=== PATIENT | female | born 1940 | race Caucasian/White ===

== ENCOUNTER 2023-08-07 07:29 | Inpatient (IN) | payer MEDICARE, OTHER ==
[2023-08-07] VITALS (9 sets, daily range): BP systolic 109–149; BP diastolic 43–98
[~2023-08-07] VITALS: Ht 165.1 cm; Wt 96.1 kg
--- OUTSIDE RECORDS SUMMARY | 2023-08-07 07:31 | XMS ---
PreManage Notification: MICHELE RODRIGUEZ [employer] Worker Events No recent Security Events currently on file CRITERIA MET - [facility] - [facility] - 2 Visits in 30 Days CARE PROVIDERS Tricia Alexander Meat Slicer/Typewriter Assembly And Parts Inspector 07/10/2023-Current PHONE: [phone] -Deniz- Dentist: Drafter Castings [facility] PHONE: [phone] BERNADINE BOLAÑOS Nurse Practitioner: Family Current PHONE: [phone] MISTY TAVERA Mail Service Coordinator: Foot \T\ Ankle Surgery Current PHONE: [phone] RODRIGO ENAMORADO Internal Medicine Current PHONE: [phone] JACKSON GRANDE Nurse Practitioner: Family Current PHONE: [phone] TAMIKA RAMOS Internal Medicine Current PHONE: Unknown SHO BLEVINS Nurse Practitioner: Family Current PHONE: [phone] ANGEL PEREZ Internal Medicine Current PHONE: [phone] Casey Fuentes DO Family Medicine Current PHONE: Unknown DONAVON GAYLE Nurse Practitioner: Psychiatric/Mental Health Current PHONE: [phone] DANIEL CAAL Nurse Practitioner Will MONIQUEGH PHONE: [phone] KYREE SRIVASTAVA Family Medicine Current PHONE: [phone] KARLA CHENEY Nurse Practitioner: Family Current PHONE: Unknown [facility] Clinic/Center: [facility] Current WORKERS CLINIC \[facility] (FQ) [facility] PHONE: [phone] Mitzy has no Care Guidelines for this patient. Gold VISIT COUNT (12 MO.) 1 LÁZARO [facility] TOTAL 2 NOTE: Visits indicate total known visits. ED/UCC VISIT TRACKING (12 MO.) 08/07/2023 07:29 [place] TYPE: Emergency COMPLAINT: - CHEST PAIN 07/23/2023 18:50 [facility] [place] TYPE: Emergency DIAGNOSES: - Acute kidney failure, unspecified - Anemia, unspecified - Hyperkalemia - Unspecified fracture of shaft of right fibula, initial encounter for closed fracture - Unspecified fracture of shaft of right tibia, initial encounter for closed fracture - RIGHT LEG PAIN INPATIENT VISIT TRACKING (12 MO.) 07/24/2023 11:58 [facility] [place] TYPE: Medical Surgical COMPLAINT: - Anemia,renal failure,right tib/fib DIAGNOSES: - Anemia,renal failure,right tib/fib [email or web address]
[2023-08-07] MEDS ORDERED: SODIUM CHLORIDE 0.9% 1,000 ML IV PRN ×2 (07:45)
[2023-08-07 07:57] LABS: HEMATOCRIT 22.4 % (35.0-50.0); HEMOGLOBIN 7.2 g/dL (12.0-18.0); MCH 31.3 (27-36)
[2023-08-07] MEDS ORDERED: BUDESONIDE1 MG/2 ML INH (07:59)
[2023-08-07] MEDS ORDERED: CELECOXIB200 MG PO (07:59)
[2023-08-07 08:00] LABS: BASOPHILS 1.5 % (0-2); EOSINOPHILS 0.9 % (0-6); LYMPHOCYTES 40.5 % (24-44); MCHC 32.1 g/dl (30-36); MCV 97.6 fl (81-99); MONOCYTES 1.4 % (0-12); NEUTROPHILS 55.7 % (39-80); PLATELET COUNT 290 K/uL (140-440); RDW 18.4 (10.5-15.0)
[2023-08-07] MEDS ORDERED: PHYSICIANS1000 MCG/1 INJ (08:00)
[2023-08-07] MEDS ORDERED: GABAPENTIN100 MG PO (08:01)
[2023-08-07] MEDS ORDERED: LEVOTHYROXINE150 MCG PO (08:13)
[2023-08-07] MEDS ORDERED: HYDRALAZINE HCL25 MG PO (08:14)
[2023-08-07] MEDS ORDERED: LOSARTAN POTAS100 MG PO (08:14)
[2023-08-07] MEDS ORDERED: PANTOPRAZOLE SO40 MG PO (08:15)
[2023-08-07 08:23] LABS: ALBUMIN 2.9 g/dL (3.4-5.0); ALBUMIN/GLOBULIN RATIO 0.97 (1.1-2.4); ANION GAP 12.2 (7-21); BILIRUBIN, TOTAL 0.5 ng/dL (0.2-1.0); BUN/CREATININE RATIO 25.19 (6.0-28.6); CALCIUM 8.3 mg/dL (8.5-10.1); CREATININE, SERUM 1.31 mg/dL (0.55-1.02); POTASSIUM 4.2 mmol/L (3.5-5.1); PROTEIN, TOTAL 5.9 g/dL (6.4-8.2)
[2023-08-07] MEDS ORDERED: METOPROLOL TARTRATE 5 MG/5 ML VIAL IV ONE (10:00)
[2023-08-07] MEDS ORDERED: FUROSEMIDE 20 MG/2 ML VIAL IV ONE (11:00)
[2023-08-07] MEDS ORDERED: CEFTRIAXONE/SODIUM CHLORIDE 1 GM/100 ML PIGGYBACK IV ONE (11:00)
[2023-08-07] MEDS ORDERED: AZITHROMYCIN 250 MG TAB PO ONE (11:00)
[2023-08-07] MEDS ORDERED: ALBUTEROL/IPRATROPIUM 3 ML NEB INH ONE (11:15)
[2023-08-07 11:18] LABS: BILIRUBIN, URINE NEGATIVE (negative); BLOOD/HGB, URINE TRACE-I (Negative); KETONE, URINE NEGATIVE (Negative); LEUK ESTERASE, URINE LARGE (negative); NITRITE, URINE NEGATIVE (negative); PH, URINE 7.5 (5-7)
[2023-08-07 11:28] LABS: BACTERIA, URINE NONE SEEN /hpf (negative); CASTS, URINE NONE SEEN \\lpf; COLLECTION TYPE, URINE CLEAN CATCH; CRYSTALS, URINE NONE SEEN (0-1+); EPITHELIAL CELLS, URINE SQUAMOUS 3+ /lpf (0-1+); REFLEX CULTURE, URINE No (No)
[2023-08-07] MEDS ORDERED: ondansetron HCL 4 MG/2 ML VIAL IV PRN (12:15)
[2023-08-07] MEDS ORDERED: ACETAMINOPHEN 325 MG TAB PO PRN (12:15)
[2023-08-07] MEDS ORDERED: SOLIFENACIN SUC10 MG PO (13:03)
[2023-08-07 13:09] LABS: ABO A; ANTIBODY SCREEN POSITIVE; RH POSITIVE
[2023-08-07] MEDS ORDERED: SIMVASTATIN40 MG PO (13:32)
[2023-08-07] MEDS ORDERED: FLUTICASONE-SA1 EAC3 INH (13:32)
[2023-08-07] MEDS ORDERED: MONTELUKAST SOD10 MG PO (13:34)
[2023-08-07] MEDS ORDERED: ATENOLOL100 MG PO (13:36)
[2023-08-07] MEDS ORDERED: HYDROCHLOROTHIA50 MG PO (13:37)
--- NOTE | 2023-08-07 13:37 | NUR ---
UNABLE TO VISIT DURING SPIRITUAL CARE ROUNDS; PT RECEIVING NURSING CARE. PROVIDED CARE.
[2023-08-07] MEDS ORDERED: DILTIAZEM HCL90 MG PO (13:48)
[2023-08-07] MEDS ORDERED: ISOSORBIDE MONO30 MG PO (13:48)
[2023-08-07] MEDS ORDERED: ATORVASTATIN CA20 MG PO (13:48)
[2023-08-07] MEDS ORDERED: METOPROLOL TAR100 MG PO (13:49)
[2023-08-07] MEDS ORDERED: SENNA LAX8.6 MG PO (13:52)
[2023-08-07] MEDS ORDERED: SEROQUEL25 MG PO (13:52)
[2023-08-07] MEDS ORDERED: VENTOLIN HFA18 GM INH (13:53)
[2023-08-07] MEDS ORDERED: ACETAMINOPHEN325 M1 PO (13:53)
[2023-08-07] MEDS ORDERED: MELATONIN3 MG PO (13:54)
[2023-08-07] MEDS ORDERED: MIRALAX17 GM PO (13:55)
[2023-08-07] MEDS ORDERED: THERA-D50 MCG PO (14:00)
[2023-08-07] MEDS ORDERED: ONDANSETRON HCL4 MG PO (14:02)
[2023-08-07] MEDS ORDERED: VITAMIN B COMP0.4 MG PO (14:02)
[2023-08-07] MEDS ORDERED: BISACODYL10 MG PR (14:03)
--- NOTE | 2023-08-07 14:04 | NUR ---
medications reconciled using [facility] M[facility]
--- NOTE | 2023-08-07 14:07 | NUR ---
UNABLE TO VISIT DURING SPIRITUAL CARE ROUNDS. PT RECEIVING NURSING CARE. PROVIDED PRAYER.
--- NOTE | 2023-08-07 14:12 | NUR ---
LET DR. ONEAL KNOW THAT PATIENT HAS A RARE BLOOD ANTIGEN AND IS HAVING FURTHER LABS TO CONFIRM, THAT THERE WILL BE A DELAY IN BLOOD TRANSFUSION DUE TO SPECIAL ORDER OF BLOOD. ALSO, THAT PATIENT DID NOT HAVE METOPROLOL OR SALINE BOLUS IN ER. PATIENT HAS WOUND CONSULT.
[2023-08-07] MEDS ORDERED: METOPROLOL TARTRATE 5 MG/5 ML VIAL IV PRN (14:30)
--- NOTE | 2023-08-07 14:43 | NUR ---
PT BROUGHT TO [facility] ALERT AND COOPERATIVE. STAFF ASSIST TO TRANSFER TO BED. PICTURES TAKEN DURING SKIN ASSESSMENT BARRIER CREAM APPLIED WOUND CONSULT ORDERED. PT ORIENTED TO ROOM AND BED CONTROLS H20 AND SOUP PROVIDED PER REQUEST. TACHYCARDIA REPORTED TO DR VIOLET CHING ORDERED. ECHO-CARDIO GRAM BEING DONE AT THIS TIME
--- NOTE | 2023-08-07 15:40 | NUR ---
O/T IN TO WORK WITH PT. PT C/O 22/01 RLE PAIN TYLENOL PROVIDED. ASKED PT WHAT SHE NORMALLY TAKES FOR PAIN SHE STATES TYLENOL. RESTING IN BED NOW BOOTIES IN PLACE WELL PURWIK
--- NOTE | 2023-08-07 16:29 | NUR ---
DR LAZO NOTIFIED OF INCREASED LACTIC ACID. STATES HE WILL BE HERE SHORTLY
--- NOTE | 2023-08-07 17:39 | NUR ---
PT SITTING UP IN BED VISITING WITH GUESTS, DENIES NEEDS.
--- NOTE | 2023-08-07 18:41 | NUR ---
DR LAZO IN TO ASSESS PT
[2023-08-07] MEDS ORDERED: VANCOMYCIN PER PHARMACY PROTOCOL IV SCH (19:30)
[2023-08-07 19:42] LABS: BASOPHILS 0.4 % (0-2); EOSINOPHILS 1.2 % (0-6); HEMATOCRIT 20.7 % (35.0-50.0); HEMOGLOBIN 6.9 g/dL (12.0-18.0); MCHC 33.3 g/dl (30-36); MONOCYTES 1.7 % (0-12); NEUTROPHILS 63.7 % (39-80); PLATELET COUNT 280 K/uL (140-440); RBC 2.15 M/ul (4.3-5.7); RDW 18.2 (10.5-15.0)
[2023-08-07] MEDS ORDERED: VANCOMYCIN HCL 2,250 MG in SODIUM CHLORIDE 0.9% 500 ML IV ONE (20:00)
--- NOTE | 2023-08-07 20:03 | NUR ---
REPORT RECEIVED FROM DAY SHIFT RN. PT LYING IN BED ALERT AND ORIENTED. ASSISTED TO REPOSITION IN BED. TELE IN PLACE. HR SUSTAINED 130'S. AWARE. ORDERS RECEIVED FOR HOME MEDS. MEDS ADMINISTERED PER EMAR. PT DENIES SOB. REPORTS RLE PAIN. RLE ELEVATED ON PILLOW. HEEL PROTECTORS IN PLACE. NO FURTHER NEEDS. CALL LIGHT IN REACH.
--- NOTE | 2023-08-07 20:23 | NUR ---
ORDERS RECEIVED TO TX PT TO CCU. PT ON PHONE WITH DAUGHTER WHO IS AWARE OF TX. PT TRANSFERRED TO CCU ROOM 129 PER MD ORDER. BEDSIDE REPORTS GIVEN TO CCU RN. ALL PERSONAL BELONGINGS IN TOW.
--- NOTE | 2023-08-07 20:27 | NUR ---
PATIENT ARRIVED TRANSFER FROM MED/SURG FOR CLOSER MONITORING. REPORT FROM HEATHER RN AND MARK RN AT BEDSIDE. PATIENT ALERT AND ORIENTED. REPORTS BLE ALWAYS TENDER AND ACHE.
[2023-08-07] MEDS ORDERED: CEFEPIME HCL 1 GM VIAL ONE (20:48)
[2023-08-07] MEDS ORDERED: VANCOMYCIN HCL 1,000 MG/20 ML VIAL ONE (20:50)
[2023-08-07] MEDS ORDERED: METOPROLOL TARTRATE 100 MG TAB PO SCH (21:00)
[2023-08-07] MEDS ORDERED: CEFEPIME HCL/D5W 2 GM/100 ML PIGGYBACK IV SCH (21:00)
[2023-08-07] MEDS ORDERED: GABAPENTIN 100 MG CAP PO SCH (21:00)
[2023-08-07] MEDS ORDERED: dilTIAZem HCL 60 MG TAB PO SCH (21:00)
[2023-08-07] MEDS ORDERED: QUETIAPINE FUMARATE 25 MG TAB PO SCH (21:00)
[2023-08-07] MEDS ORDERED: ATORVASTATIN 20 MG TAB PO SCH (21:00)
[2023-08-07] MEDS ORDERED: CEFEPIME HCL 1 GM in DEXTROSE 5% 100 ML IV SCH (21:00)
[2023-08-07] MEDS ORDERED: PANTOPRAZOLE SODIUM 40 MG/10 ML VIAL IV SCH (21:00)
[2023-08-07] MEDS ORDERED: ALBUTEROL/IPRATROPIUM 3 ML NEB INH PRN (21:15)
--- NOTE | 2023-08-07 21:22 | NUR ---
PATIENT ADMINSITERED TYLENOL PRN FOR 4/10 PAIN AT RLE, ALSO ICE PACKS X2 PLACED LATERALLY ALONG RLE TO HELP WITH PAIN AND INFLAMMATION. ALSO UPDATED IN PATIENT SWELLING/BRUISING AT RLE POST OP, HE VISUALIZED THIS AFTER HAVING PATIENT SIGN BLOOD CONSENT FORM. EXPLAIN PLAN OF CARE GOING FORWARD IN REGARDS TRANSFUSION AND POTENTIAL REACTION/SIDE EFFECTS.
--- NOTE | 2023-08-07 21:39 | NUR ---
PATIENT NOW RESTING IN BED, EYES CLOSED ON MONITOR, V/S STABLE, RESPIRATIONS 27/MIN
--- NOTE | 2023-08-07 23:09 | EKG ---
[facility] [address] [facility] [place] [address] Signed Supraventricular tachycardia Nonspecific ST and T wave abnormality Abnormal ECG No previous ECGs available Confirmed by Siena Lazo MD () on 08/07/2023 11:09:57 PM Electronically Signed By: SIENA LAZO MD 08/07/23 2309 PATIENT NAME: MICHELE RODRIGUEZ Electrocardiogram DATE OF : 36 PHYSICIAN: SIENA LAZO MD REPORT #: [id number] REPORT IS CONFIDENTIAL AND NOT TO BE RELEASED WITHOUT AUTHORIZATION
--- NOTE | 2023-08-07 23:32 | NUR ---
PATIENT TURNED AND CLEANED AND CHANGED DEPENDS WITH URINE ON PURWICK NOT IN POSITION WELL. NEW PURWICK PLACED, CLEAN DRAW SHEET, PATIENT ABLE TO ASSIST MINIMALLY WITH BED MOBILITY. PATIENT HAS NO NEW REQUESTS. CALL LIGHT IN REACH.
[2023-08-08] VITALS (19 sets, daily range): BP systolic 107–142; BP diastolic 40–93
[2023-08-08 00:29] LABS: BASOPHILS 0.7 % (0-2); EOSINOPHILS 2.7 % (0-6); HEMOGLOBIN 6.5 g/dL (12.0-18.0); MCH 31.6 (27-36); MCHC 32.7 g/dl (30-36); MCV 96.6 fl (81-99); MONOCYTES 1.4 % (0-12); NEUTROPHILS 62.2 % (39-80); PLATELET COUNT 254 K/uL (140-440); RBC 2.07 M/ul (4.3-5.7); RDW 18.5 (10.5-15.0)
[2023-08-08] MEDS ORDERED: CYCLOBENZAPRINE HCL 10 MG TAB PO ONE (01:15)
--- NOTE | 2023-08-08 01:17 | NUR ---
TALKED TO TO REPORT PATIENT CONTINUES TO BE RESTLESS AND "JERK" AWAKE AND MOAN, POSSIBLE MUSCLE SPASMS, HE SAID OK TO TRY ONE LOW DOSE OF FLEXERILE 5MG PO. AND ORDER BIPAP/CPAP FOR R.T. TO SET UP RECORDS SHOW SHE HAS HISTORY SLEEP APNEA WITH HOME CPAP, SOMETIMES COMPLIANT.
--- NOTE | 2023-08-08 02:46 | NUR ---
PATIENT REPOSITIONED DUE TO HER REPORT OF DISCOMFORT. PATIENT NOW RESTING QUIETLY IN BED, EYES CLOSED.
--- NOTE | 2023-08-08 03:35 | NUR ---
PATIENT REPOSITIONED AND DEPENDS CHANGE OF URINE, DUE TO PURWICK NOT CATCHING ALL URINE OUT, PATIENT ADMINISTERED TYLENOL FOR PAIN 09/17 AT RLE
[2023-08-08] MEDS ORDERED: CEFEPIME HCL 1 GM VIAL ONE ×2 (05:04→05:14)
[2023-08-08 05:37] LABS: BASOPHILS 0.7 % (0-2); EOSINOPHILS 3.5 % (0-6); HEMOGLOBIN 6.7 g/dL (12.0-18.0); LYMPHOCYTES 32.4 % (24-44); MCHC 33.3 g/dl (30-36); MCV 96.1 fl (81-99); NEUTROPHILS 62.4 % (39-80); PLATELET COUNT 258 K/uL (140-440); RBC 2.08 M/ul (4.3-5.7); RDW 18.5 (10.5-15.0)
[2023-08-08 05:59] LABS: ALBUMIN 2.5 g/dL (3.4-5.0); ALBUMIN/GLOBULIN RATIO 0.81 (1.1-2.4); BILIRUBIN, TOTAL 0.4 ng/dL (0.2-1.0); BUN/CREATININE RATIO 18.23 (6.0-28.6); CALCIUM 7.7 mg/dL (8.5-10.1); CREATININE, SERUM 1.81 mg/dL (0.55-1.02); MAGNESIUM 1.3 mg/dL (1.8-2.4); PHOSPHORUS, INORGANIC 5.1 mg/dL (2.5-4.9); PROTEIN, TOTAL 5.6 g/dL (6.4-8.2); TSH, 3RD GENERATION 1.812 uIU/mL (0.358-3.740)
[2023-08-08] MEDS ORDERED: MAGNESIUM SULFATE 4 GM/100 ML BAG IV ONE (06:30)
[2023-08-08] MEDS ORDERED: LEVOTHYROXINE SODIUM 150 MCG TAB PO SCH ×2 (07:00→09:00)
--- NOTE | 2023-08-08 08:16 | NUR ---
IN PATIENT'S ROOM FOR AM ASSESSMENT AND VITALS. PT AWAKENS EASILY AND STATES SHE SLEPT WELL, AND FINALLY WAS ABLE TO RELAX. PT WAS GIVEN PRN FLEXARIL AND STATES SHE FEELS THIS HELPED HER PAIN. CURRENT PAIN IS 6/10 IN RIGHT LEG. PT IS ABLE TO MOVE TOES, LIFT LEFT LEG UP OFF THE BED AND GROSS MOVEMENT OF RIGHT LEG, MOSTLY DUE TO WEAKNESS IT SEEMS. PT REPORTS SHE HASN'T BEEN OUT OF BED IN A LONG TIME, BUT DID SIT AT THE EDGE OF THE BED YESTERDAY. NOTED ON TRAFFIC CONTROL SUPERVISOR THAT HR ELEVATED UP TO THE 120s, SINUS. PT ON 2 L OF OXYGEN AND SP02 IS 99-100%. OXYGEN TAKEN OFF AT THIS TIME AND WILL CONTINUE TO WATCH SP02 LEVEL. PT RECEIVING 4 GM IV MAG AT THIS TIME, WELL IV CEFEPIME. PT ABLE TO HELP ROLL SELF TO HER SIDE IN BED, AND BACKSIDE ASSESSED. PUREWICK IN PLACE AND WORKING WELL. PLAN OF CARE DISCUSSED WITH PATIENT. CALL LIGHT WITHIN REACH. WILL CONTINUE TO MONITOR.
--- NOTE | 2023-08-08 09:04 | NUR ---
DR. LAZO IN TO SEE PATIENT. PATIENT HAS REMAINED OFF OXYGEN SINCE AROUND 0815. HR REMAINS ELEVATED, CURRENTLY 110s, SINUS. PT ABLE TO EAT ALL OF HER EGGS AND BISQUIT. PLAN OF CARE BEING DISCUSSED. PT WILL HAVE AN XRAY OF HER RIGHT LEG. WILL CONTINUE TO MONITOR.
--- NOTE | 2023-08-08 10:23 | NUR ---
PATIENT HAS VISITORS IN ROOM AT THIS TIME. XRAYS OF RIGHT LEG COMPLETE. HR BETTER CONTROLLED NOW, CURRENTLY 80s. SP02 IS 95% ON ROOM AIR.
[2023-08-08] MEDS ORDERED: PHARMACY RENAL DOSE ADJUSTMENT 1 DOSE MISC PO SCH (12:00)
--- NOTE | 2023-08-08 14:53 | NUR ---
PHYS THERAPY IN TO SEE PATIENT AND WORKING WITH PATIENT TO GET TO SIDE OF BED. PT HESITANT TO WORK WITH PHYS THERAPY BUT WAS WILLING TO AFTER SOME DISCUSSION. WHILE SITTING ON EDGE OF BED, PT DID USE INCENTIVE SPIROMETER AND WAS ABLE TO GET IT UP TO 750 ML. PT BACK TO RESTING AT THIS TIME.
[2023-08-08] MEDS ORDERED: VANCOMYCIN HCL 750 MG in DEXTROSE 5% 250 ML IV SCH (16:00)
[2023-08-08 16:15] LABS: BASOPHILS 0.8 % (0-2); EOSINOPHILS 3.9 % (0-6); HEMATOCRIT 22.1 % (35.0-50.0); HEMOGLOBIN 7.1 g/dL (12.0-18.0); MCH 31.5 (27-36); MCHC 32.4 g/dl (30-36); MCV 97.1 fl (81-99); MONOCYTES 1.2 % (0-12); NEUTROPHILS 58.1 % (39-80); PLATELET COUNT 291 K/uL (140-440); RBC 2.27 M/ul (4.3-5.7); RDW 18.2 (10.5-15.0)
[2023-08-08 16:21] LABS: ANION GAP 14.3 (7-21); BUN/CREATININE RATIO 20.1 (6.0-28.6); CALCIUM 8.3 mg/dL (8.5-10.1); CREATININE, SERUM 1.94 mg/dL (0.55-1.02); POTASSIUM 4.3 mmol/L (3.5-5.1)
[2023-08-08] MEDS ORDERED: LACTATED RINGER'S 1,000 ML IV SCH (18:00)
--- NOTE | 2023-08-08 20:04 | NUR ---
PATIENT ALERT AND ORIENTED, REPORTS PAIN IS TOLERABLE AT THIS TIME. REPORTS NO NEEDS AT THIS TIME, SHE SPOKE ABOUT HER DOG AND SHOWED THIS RN PICTURED FROM HER PHONE. SHE SAID SHE HAS TO GET BETTER TO GO HOME TO HER DOG AND CAT.
[2023-08-08] MEDS ORDERED: CEFEPIME HCL/D5W 2 GM/100 ML PIGGYBACK IV SCH (21:00)
[2023-08-08] MEDS ORDERED: CYCLOBENZAPRINE HCL 10 MG TAB PO SCH (21:00)
[2023-08-08] MEDS ORDERED: VANCOMYCIN HCL/D5W 1 GM/270 ML PIGGYBACK KIT IV SCH (21:00)
--- NOTE | 2023-08-08 21:12 | NUR ---
HS ASSESSMENT COMPLETE, NO NEW CONCERNS, HS MEDICATIONS ADMINISTERED WITH TYLENOL PRN FOR PAIN 06/17, SHE REPORTS IT IS JUST STARTING TO HURT IN REFERENCE TO RLE, SHE IS PLEASANT AND ORIENTED. KIM Hyde HAS PLACED BIPAP ON PATIENT, SHE IS TOLERATING WELL OF NOW.
[2023-08-08 22:52] LABS: BASOPHILS 0.5 % (0-2); EOSINOPHILS 4.3 % (0-6); HEMATOCRIT 19.2 % (35.0-50.0); HEMOGLOBIN 6.4 g/dL (12.0-18.0); LYMPHOCYTES 37.6 % (24-44); MCH 31.9 (27-36); MCHC 33.2 g/dl (30-36); MCV 96.3 fl (81-99); MONOCYTES 1.3 % (0-12); NEUTROPHILS 56.3 % (39-80); PLATELET COUNT 265 K/uL (140-440); RBC 1.99 M/ul (4.3-5.7); RDW 18.8 (10.5-15.0)
[2023-08-08 23:07] LABS: ANION GAP 11.7 (7-21); BUN/CREATININE RATIO 20.44 (6.0-28.6); CREATININE, SERUM 1.81 mg/dL (0.55-1.02); POTASSIUM 3.7 mmol/L (3.5-5.1)
--- NOTE | 2023-08-08 23:53 | NUR ---
BLOOD UPDATE, THIS RN CALLED LAB TO ASK WHEN UNIT ORDERED OUT OF HOUSE WOULD ARRIVE. LAB SAID IT HAS ARRIVED, IT WILL REQUIRE DR. HO AN EMERGENCY RELEASE. CALLED TO UPDATE ALSO, HE SAID HE WILL EVALUATE HER LABS IN AM. NO NEW ORDERS AT THIS TIME
[2023-08-09] VITALS (15 sets, daily range): BP systolic 102–148; BP diastolic 36–107
--- NOTE | 2023-08-09 00:36 | NUR ---
PATIENT ALERT TO STAFF AT BEDSIDE, PATIENT CHECKED TO ENSURE DEPENDS DRY AND REPOSITIONED PATIENT, PLACEING PILLOW UNDER RIGHT KNEE PER PATIENT REQUEST. PATIENT REPORTS SHE IS COMFORTABLE AT THIS TIME.
--- NOTE | 2023-08-09 05:25 | NUR ---
PATIENT RESTING IN BED, EYES CLOSED AWAKES FOR INTERACTION THEN BACK TO SLEEP, NO REPORTS OF PAIN OR NAUSEA, AM ASSESSMENT COMPLETE, AM LABS DRAWN BY LAB STAFF.
--- NOTE | 2023-08-09 05:35 | NUR ---
BLADDER SCANNED PATIENT AT THIS TIME DUE TO ONLY HAVING 225ML URINE OUT OVER SHIFT, SCANNED FOR 355ML.
[2023-08-09 05:54] LABS: ALBUMIN 2.5 g/dL (3.4-5.0); ALBUMIN/GLOBULIN RATIO 0.81 (1.1-2.4); ANION GAP 15.8 (7-21); BILIRUBIN, TOTAL 0.3 ng/dL (0.2-1.0); BUN/CREATININE RATIO 20.21 (6.0-28.6); CALCIUM 8.1 mg/dL (8.5-10.1); CREATININE, SERUM 1.88 mg/dL (0.55-1.02); MAGNESIUM 2.2 mg/dL (1.8-2.4); POTASSIUM 3.8 mmol/L (3.5-5.1); PROTEIN, TOTAL 5.6 g/dL (6.4-8.2)
[2023-08-09 06:05] LABS: BASOPHILS 0.6 % (0-2); EOSINOPHILS 4.7 % (0-6); HEMATOCRIT 20.5 % (35.0-50.0); HEMOGLOBIN 6.7 g/dL (12.0-18.0); LYMPHOCYTES 42.4 % (24-44); MCH 31.4 (27-36); MCHC 32.5 g/dl (30-36); MCV 96.7 fl (81-99); MONOCYTES 1.3 % (0-12); PLATELET COUNT 269 K/uL (140-440); RBC 2.12 M/ul (4.3-5.7); RDW 18.8 (10.5-15.0)
--- NOTE | 2023-08-09 07:04 | NUR ---
NOTIFIED OF PATIENT LOW URINE OUT OVER COIL WINDER REPAIR, BLADDER SCANNED FOR 355ML AT 0530. NO NEW ORDERS AT THIS TIME.
[2023-08-09 07:36] LABS: IS CROSSMATCH INCOMPATIBLE
--- NOTE | 2023-08-09 07:36 | NUR ---
REPORT FROM YENNY DUNNE.
--- NOTE | 2023-08-09 08:45 | NUR ---
MORNING ASSESSMENT COMPLETE. UPPER LEFT LOBE OF LUNG IS CLEAR WITH FINE CRACKLES, LEFT LOWER LOBE IS DIM. RIGHT LUNG WITH CRACKLES THROUGHOUT. PATIENT SITTING UP IN BED TO EAT BREAKFAST, DID HAVE EPISODE OF COUGHING, ASPIRATED A SMALL AMOUNT OF ORANGE JUICE, COUGHED, FELT BETTER AND RESUMED EATING BREAKFAST. PATIENT DENIES PAIN OR NAUSEA.
--- NOTE | 2023-08-09 08:56 | NUR ---
PT REPOS TO RIGHT SIDE. PILLOW ON LEFT SIDE. BRIEF CHANGE AND MARTIN CHANGED. LINENS REPOS. PT BRUCE CARE COMPLETE. BED BATH AND SHAMPOO CAP COMPLETE. WARM BLANKETS AND WATER PROVIDED. NO NEEDS CALL LIGHT WITHIN REACH
--- NOTE | 2023-08-09 09:11 | NUR ---
PATIENT GIVEN MORNING ORAL MEDS, IV PROTONIX. PT AND OT IN TO WORK WITH PATIENT.
--- NOTE | 2023-08-09 09:15 | NUR ---
IN TO SPEAK WITH PATIENT. PATIENT HAS RECENTLY BEEN RECVING REHAB AT [facility] AT [address]. PATIENT NORMALLY RESIDES IN A 1 LEVEL TRAILER IN [place]. PATIENT STATES SHE RECVS CAREGIVING HOURS THROUGH [facility] THOUGH THEY HAVE RECENTLY BEEN DECREASED. PATIENT STARTED WITH 35 HRS PER WEEK AND HAS BEEN DECREASED TO 15 HR. PATIENT HAS A ELECTRIC WC AT [facility] AND A FWW WALKER AT HOME. PATIENT DAUGHTER AND CONTACT DAVID LIVES IN [place], BUT SHE HAS A SON AND DAUGHTER WHO ALSO LIVE IN [place]. PATIENT HAS NO FINANCIAL CONCERNS AT THIS TIME. SHE IS HAPPY TO HEAR SHE WILL BE RETURNING TO [facility] AT DISCHARGE. PATIENT IS CONCERNED ABOUT THE RECENT DECREASE IN CAREGIVING HOURS. ADVISED I WILL CONTACT HER MATERIAL LOADER AT [facility] TO DISCUSS HER CURRENT SITUATION.
--- NOTE | 2023-08-09 09:30 | NUR ---
PATIENT IS FINISHED WORKING WITH PATIENT. PATIENT IS NOW REPOSITIONED TO LEFT SIDE. PATIENT WAS ABLE TO SIT ON SIDE OF BED WITH 2PA.
--- NOTE | 2023-08-09 09:38 | NUR ---
CASE MANAGEMENT (RENE) IN TO TALK WITH PATIENT.
--- NOTE | 2023-08-09 10:43 | NUR ---
URINE OUTPUT IS 400ML FOR THE MORNING [phone]. PATIENT IS SLEEPING WITH REGULAR RESPIRATIONS.
--- NOTE | 2023-08-09 11:47 | NUR ---
PT ORAL CARE PERFORMED W ASSISTANCE FROM SANDWICH COUNTER ATTENDANT. PT REPOS ONTO OTHER SIDE. PT PILLOW ON LEFT SIDE. NO FURTHER NEEDS, CALL LIGHT WITHIN REACH
--- NOTE | 2023-08-09 11:53 | NUR ---
PT REFUSED LUNCH TRAY
--- NOTE | 2023-08-09 12:24 | NUR ---
IV BLOOD INFUSION STARTED AT 12OO. PATIENT DISPLAYS NO INFUSION REACTIONS. LEFT ARM IV HAS STARTED LEAKING, HOWEVER, AND BLOOD INFUSION CHANGED TO RIGHT A/C SITE.
--- NOTE | 2023-08-09 13:31 | NUR ---
AFTERNOON ASSESSMENT COMPLETE. PURE WICK CHANGED, PATIENT REPOSITIONED TO LEFT SIDE. BLOOD TRANFUSION IS PROGRESSING WELL, NO REACTION. RIGHT ARM IV SITE INTACT, NO INFLAMMATION NOTED.
--- NOTE | 2023-08-09 14:11 | NUR ---
RIGHT A/C IV IS HAS LEAKED A SMALL AMOUNT, DRESSING CHANGED, PATIENT ENCOURAGED TO KEEP ARM STRAIGHT BLOOD INFUSION WILL BE COMPLETE IN THE NEXT 45 MINUTES.
--- NOTE | 2023-08-09 15:06 | NUR ---
PATIENT BLOOD INFUSION IS COMPLETE. NO ADVERSE REACTION NOTED. PATIENT IS EATING A LATE LUNCH.
[2023-08-09 16:08] LABS: HEMOGLOBIN 8.1 g/dL (12.0-18.0); RBC 2.56 M/ul (4.3-5.7); RDW 17.3 (10.5-15.0)
[2023-08-09 16:10] LABS: BASOPHILS 0.8 % (0-2); EOSINOPHILS 4.5 % (0-6); HEMATOCRIT 24.4 % (35.0-50.0); LYMPHOCYTES 42.8 % (24-44); MCH 31.8 (27-36); MCHC 33.4 g/dl (30-36); MCV 95.4 fl (81-99); NEUTROPHILS 50.9 % (39-80); PLATELET COUNT 279 K/uL (140-440)
[2023-08-09 16:18] LABS: ANION GAP 17.1 (7-21); BUN/CREATININE RATIO 20.32 (6.0-28.6); CALCIUM 8.3 mg/dL (8.5-10.1); CREATININE, SERUM 1.87 mg/dL (0.55-1.02); POTASSIUM 4.1 mmol/L (3.5-5.1)
--- NOTE | 2023-08-09 17:25 | NUR ---
PATIENT IS SLEEPING WITH REGULAR RESPIRATIONS.
--- NOTE | 2023-08-09 17:41 | NUR ---
PATIENT IS SITTING UP IN BED TO EAT DINNER.
--- NOTE | 2023-08-09 18:38 | NUR ---
PATIENT IS SITTING UP IN BED, WATCHING VIDEOS ON HER PHONE. PATIENT DENIES NEEDS AT THIS TIME.
--- NOTE | 2023-08-09 18:53 | NUR ---
PATIENT REPOSITIONED TO RIGHT SIDE.
--- NOTE | 2023-08-09 19:50 | NUR ---
PATIENT SITTING UP IN BED, ALERT AND ORIENTED TALKING ON HER CELL PHONE.
--- NOTE | 2023-08-09 20:31 | NUR ---
PATIENT REPOSITIONED AT THIS TIME, PILLOWS UNDER HER LAEGS PER HER REQUEST FOR COMFORT, SHE REPORTS NO PAIN OR NAUSEA, SHE IS ON HER CELL PHONE AGAIN NOW. ALERT AND ORIENTED.
[2023-08-09] MEDS ORDERED: PANTOPRAZOLE SODIUM 40 MG TABEC PO SCH (21:00)
[2023-08-09 23:29] LABS: HEMATOCRIT 23.8 % (35.0-50.0); HEMOGLOBIN 7.8 g/dL (12.0-18.0); MCH 31.4 (27-36); MCHC 32.8 g/dl (30-36); MCV 95.6 fl (81-99); RBC 2.49 M/ul (4.3-5.7)
--- NOTE | 2023-08-09 23:30 | NUR ---
LAB INTO DRAW, MISSED ONCE, THIS RN INTO ROOM, SAID "WE WILL TRY TO START A NEW IV AND DRAW FROM THAT FOR LABS" NEW IV ESTABLISHED IN LEFT AC, LABS DRAWN. PATIENT TOLERATED WELL.
[2023-08-09 23:32] LABS: PLATELET COUNT 273 K/uL (140-440); RDW 17.8 (10.5-15.0)
[2023-08-09 23:38] LABS: ANION GAP 16.3 (7-21); BUN/CREATININE RATIO 21.54 (6.0-28.6); CALCIUM 8.4 mg/dL (8.5-10.1); CREATININE, SERUM 1.81 mg/dL (0.55-1.02); POTASSIUM 4.3 mmol/L (3.5-5.1)
[2023-08-09 23:45] LABS: BANDS, MANUAL DIFF 1; EOSINOPHILS, MANUAL DIFF 5; LYMPHOCYTES, MANUAL DIFF 50; MONOCYTES, MANUAL DIFF 1; NEUTROPHILS, MANUAL DIFF 43
[2023-08-10] VITALS (11 sets, daily range): BP systolic 118–150; BP diastolic 46–101
--- NOTE | 2023-08-10 00:07 | NUR ---
PATIENT RESTING IN BED, EYES CLOSED RESPIRATIONS 25/MIN, NO DISTRESS NOTED.
[2023-08-10] MEDS ORDERED: SODIUM CHLORIDE 0.9% 500 ML IV ONE (00:30)
--- NOTE | 2023-08-10 00:41 | NUR ---
CALLED GAVE NEW ORDERS FOR 500ML OF NS TO BE ADMINISTERED OVER 5 HOURS.
--- NOTE | 2023-08-10 03:32 | NUR ---
PATIENT ROUNDING, PATIENT ASKED FOR A DRINK OF WATER, WATER CUP PROVIDED, THEN PATIENT REPOSITIONED IN BED AND TURNED.
[2023-08-10 05:22] LABS: BASOPHILS 0.7 % (0-2); EOSINOPHILS 4.3 % (0-6); HEMOGLOBIN 7.7 g/dL (12.0-18.0); MCH 31.7 (27-36); MCHC 33.4 g/dl (30-36); MCV 95.1 fl (81-99); MONOCYTES 1.5 % (0-12); NEUTROPHILS 43.5 % (39-80); PLATELET COUNT 266 K/uL (140-440); RBC 2.42 M/ul (4.3-5.7); RDW 17.1 (10.5-15.0)
--- NOTE | 2023-08-10 05:32 | NUR ---
PATIENT RESTING QUIETLY IN BED, EYES CLOSED. ALERT TO RN AT BEDSIDE. LABS DONE, AM ASSESSMENT COMPLETE. PATIENT DOES NOT REPORT ANY PAIN OR NAUSEA AT THIS TIME. PATIENT IS NOTED TO HAVE FINE CRACKLES THROUGHOUT LUNG JC, THIS IS NOT NEW FROM DAYSHIFT REPORT, NO OTHER NEW CONCERNS OVERNIGHT. PEDAL PULSES ARE STRONG BILATERALLY. ATTEMPTED ROOM AIR TRIAL EARLY IN SHIFT, PATIENT DESATURATED TO 87-88% OXYGEN, PLACED 1L OXYGEN BACK ON PATIENT AND THIS HAS REMAINED ON THE PATIENT. SHE HAS BEEN REPOSITIONED Q2H AND PRN FOR COMFORT.BLE ELEVATED ON PILLOWS.
[2023-08-10 05:36] LABS: ALBUMIN 2.5 g/dL (3.4-5.0); ALBUMIN/GLOBULIN RATIO 0.78 (1.1-2.4); ANION GAP 14.2 (7-21); BILIRUBIN, TOTAL 0.3 ng/dL (0.2-1.0); BUN/CREATININE RATIO 22.42 (6.0-28.6); CALCIUM 8.3 mg/dL (8.5-10.1); CREATININE, SERUM 1.65 mg/dL (0.55-1.02); POTASSIUM 4.2 mmol/L (3.5-5.1); PROTEIN, TOTAL 5.7 g/dL (6.4-8.2)
[2023-08-10] MEDS ORDERED: SODIUM CHLORIDE 0.9% 1,000 ML IV SCH (08:15)
--- NOTE | 2023-08-10 08:15 | NUR ---
BREAKFAST BROUGHT IN TO PT, PT AWAKENS EASILY, HELPED TO POSITION TO EAT. C/O 5/10 RIGHT LEG PAIN, WILL GIVE PRN TYLENOL WITH AM MEDS.
[2023-08-10] MEDS ORDERED: VANCOMYCIN HCL 1,750 MG in DEXTROSE 5% 500 ML IV SCH (09:00)
--- NOTE | 2023-08-10 09:00 | NUR ---
Spoke with Janki from [facility] and updated pt may be able to return tomorrow per our 8:30 meeting. She will update the nurses.
--- NOTE | 2023-08-10 09:30 | NUR ---
AM MEDS GIVEN, ASSESSMENT DONE. ALLEVYNS TO RLE IN PLACE, BRUISING NOTED TO RLE PT STATES NOT NEW, LUNGS CLEAR, DIM IN BASES BILAT.
--- NOTE | 2023-08-10 09:50 | NUR ---
T WAVE CHANGES NOTED ON THE MONITOR, SHOWN TO DR LAZO, ORDER GIVEN FOR EKG. EKG DONE BY RT, SHOWN TO MD, NO NEW ORDERS AT THIS TIME. CONT TO MONITOR. PT DENIES CHEST PAIN, SHORTNESS OF BREATH.
--- NOTE | 2023-08-10 10:30 | NUR ---
PT WORKING WITH PHYSICAL THERAPY, MOVED UP TO CHAIR.
--- NOTE | 2023-08-10 11:20 | NUR ---
Attemped to see, she is sleeping. Pt not awakened. Will see tomorrow.
--- NOTE | 2023-08-10 11:51 | NUR ---
PATIENT SITTING UP IN RECLINER FOR LUNCH. LUNCH TRAY AND PERSONAL ITEM CLOSE BY. FRESH ICE WATER PROVIDED
--- NOTE | 2023-08-10 13:10 | NUR ---
US IN TO DO ULTRASOUND
--- NOTE | 2023-08-10 13:23 | EKG ---
[facility] [address] [facility] [place] [address] Signed Sinus tachycardia Nonspecific ST and T wave abnormality Abnormal ECG When compared with ECG of 07-AUG-2023 07:28, Nonspecific T wave abnormality, worse in Inferior leads Confirmed by Siena Lazo MD () on 08/10/2023 1:23:15 PM Electronically Signed By: SIENA LAZO MD 08/10/23 1323 PATIENT NAME: MICHELE RODRIGUEZ Electrocardiogram DATE OF : 36 PHYSICIAN: SIENA LAZO MD REPORT #: [id number] REPORT IS CONFIDENTIAL AND NOT TO BE RELEASED WITHOUT AUTHORIZATION
--- NOTE | 2023-08-10 13:40 | NUR ---
WARM BLANKET PROVIDED PER REQUEST. CALL LIGHT IN EASY REACH
--- NOTE | 2023-08-10 15:00 | NUR ---
PT REMAINS IN BED, ASSISTED TO REPOSITION ONTO OTHER SIDE WITH PILLOW, REPORTS BACK FEELS BETTER AFTER MOVING. PT HAS BEEN TALKING ON THE PHONE WITH DAUGHTER, DENIES NEEDS AT THIS TIME.
--- NOTE | 2023-08-10 17:15 | NUR ---
DR ENGLE BY TO ROUND ON PT, UPDTAE GIVEN INCLUDING LOW URINE OUTPUT, NO NEW ORDERS AT THIS TIME.
--- NOTE | 2023-08-10 18:06 | NUR ---
DINNER BROUGHT IN TO PT AND PT HELPED WITH GETTING POSITIONED TO EAT, NO REQUESTS AT THIS TIME.
--- NOTE | 2023-08-10 20:04 | NUR ---
PATIENT REPORTS MILD NAUSEA, STATING "I FEEL WOOZEY IN MY STOMACH". PATIENT HOB ELEVATED AND EMESIS BAG PROVIDED. PRN ZOFRAN PER ORDER. PATIENT IN GOOD SPIRITS. VS STABLE. IV SITES WNL X2. IV FLUIDS PER ORDER. PATIENT RECEIVED CALL FROM FAMILY. RN PROVIDED PRIVACY AT THIS TIME. CALL LIGHT IN REACH. PATIENT ON MONITOR.
--- NOTE | 2023-08-10 21:30 | NUR ---
PATIENT PROVIDED SCHEDULED MEDS AND PRN TYLENOL FOR GENERALIZED PAIN 5/10. PATIENT TOOK PILLS WELL WITH JELL-O AND WATER. PATIENT HAS BEEN VOIDING TO PURE WIC WHICH WAS NOT IN PROPER POSITION. PATIENT ATTEND AND BEDDING SATURATED WITH A LARGE AMOUNT OF URINE. BRUCE CARE DONE AND LINEN CHANGED. NEW ATTENDS AND PURE WIC IN PLACE. PATIENT POSITIONED FOR COMFORT. CALL LIGHT IN REACH.
--- NOTE | 2023-08-10 23:24 | NUR ---
PATIENT REPOSTIONED IN BED. PURE WIC IN PLACE AND FUNCTIONING. DENIED ANY FURTHER NEEDS OR CONCERNS. CALL LIGHT IN REACH. VS STABLE.
[2023-08-11] VITALS: BP 125/54
--- NOTE | 2023-08-11 00:03 | NUR ---
PATIENT REPORTS BEING UNCOMFORTABLE. ASSISTED PATIENT TO REPOSITION IN BED. PATIENT VS STABLE. PAIN IN RIGHT LEG APPEARS WITHIN PROPORTION; PAINFUL WITH MOVEMENT. VS STABLE. IV SITE WNL, X2. CALL LIGHT IN REACH.
--- NOTE | 2023-08-11 01:30 | NUR ---
PATIENT REPOSITIONED FOR COMFORT. RIGHT LEG ELEVATED. PATIENT VS STABLE. CALL LIGHT IN REACH.
[2023-08-11 02:00] VITALS: BP 121/50
--- NOTE | 2023-08-11 02:30 | NUR ---
PATIENT APPEARS TO BE RESTING MORE COMFORTABLY. EYES CLOSED. VS STABLE. CALL LIGHT IN REACH.
[2023-08-11 04:00] VITALS: BP 142/56
--- NOTE | 2023-08-11 05:00 | NUR ---
PATIENT HAS APPEARED COMFORTABLE. RESTING WITH EYES CLOSED. WAKES EASILY TO VOICE. VS STABLE. ADQUATE URINE OUTPUT PER PURE WIC. RIGHT LEG ELEVATED ON 1 PILLOW. DRESSING INTACT. IV FLUIDS PER ORDER, SITE WNL. CALL LIGHT IN REACH.
[2023-08-11 06:00] VITALS: BP 143/52
--- NOTE | 2023-08-11 06:18 | NUR ---
MORNING I&O'S DONE. NEW BAG IV FLUIDS HUNG. ROOM CLEANED UP. PATIENT RESTING WITH EYES CLOSED. VS STABLE. ALLOW PATIENT TO REST. CALL LIGHT IN REACH.
--- NOTE | 2023-08-11 06:36 | NUR ---
SPOKE WITH ABOUT LABS ORDERED; ORDERED LABS.
[2023-08-11 06:55] LABS: BASOPHILS 0.7 % (0-2); EOSINOPHILS 3.4 % (0-6); HEMATOCRIT 23.4 % (35.0-50.0); HEMOGLOBIN 7.6 g/dL (12.0-18.0); LYMPHOCYTES 52.8 % (24-44); MCH 31.4 (27-36); MCHC 32.6 g/dl (30-36); MCV 96.4 fl (81-99); MONOCYTES 1.4 % (0-12); NEUTROPHILS 41.7 % (39-80); PLATELET COUNT 265 K/uL (140-440); RBC 2.42 M/ul (4.3-5.7); RDW 17.5 (10.5-15.0)
[2023-08-11 07:07] LABS: ANION GAP 15.5 (7-21); BUN/CREATININE RATIO 23.8 (6.0-28.6); CALCIUM 8.7 mg/dL (8.5-10.1); CREATININE, SERUM 1.47 mg/dL (0.55-1.02); MAGNESIUM 1.6 mg/dL (1.8-2.4); POTASSIUM 4.5 mmol/L (3.5-5.1)
[2023-08-11] MEDS ORDERED: MAGNESIUM SULFATE IV ONE (08:00)
[2023-08-11] MEDS ORDERED: MAGNESIUM SULFATE 2 GM/50 ML BAG IV ONE (08:00)
[2023-08-11] MEDS ORDERED: CEFEPIME HCL/D5W 2 GM/100 ML PIGGYBACK IV SCH (09:30)
--- NOTE | 2023-08-11 09:30 | NUR ---
Pt. awake, denies needs. States she will be happy to return to [place] today if the DrSarah discharges her today. IMM letter completed. Updated Raj called and can take her this afternoon if she discharges. She asks I call her daughter Olinda and update.
--- NOTE | 2023-08-11 10:04 | NUR ---
Called pts daughter, Radha. Updated pt may dc today. She would like pt to transport per van, if she discharges.
--- NOTE | 2023-08-11 10:07 | NUR ---
VISITED DURING SPIRITUAL CARE ROUNDS. PT TALKED OF [facility] [employer], FAMILY. I LISTENED EMPATHETICALLY, PROVIDED SUPPORTIVE PRESENCE, PROVIDED PRAYER. PT EXPRESSED HOPEFUL ANTICIPATION.
[2023-08-11] MEDS ORDERED: CEFDINIR300 MG PO (10:12)
--- NOTE | 2023-08-11 10:23 | NUR ---
PHYSICAL THERAPY IN TO WORK WITH PT.
--- NOTE | 2023-08-11 10:40 | NUR ---
Notified by Dr. Neal he is working on orders. I called and spoke with [facility] [employer] and they have a 1330 opening for van transport. Janki RAMON from [facility], and notified of available transport time.
--- NOTE | 2023-08-11 11:53 | NUR ---
Orders, PASRR, Med orders, PT/OT evals and notes faxed to Janki at [facility].
--- NOTE | 2023-08-11 13:07 | NUR ---
Notified by staff, transport wcs are missing. Called transport and asked if they can tile picker a wc from [place] and they agree. Called Janki at [facility] and asked if they can put a wc out for transport. She agrees and states two of our wc are there. I requested she send those wcs with the semi driver and she agrees.
[2023-08-11 13:30] VITALS: BP 124/61
--- NOTE | 2023-08-11 14:09 | NUR ---
REPORT CALLED TO CHARLIE RAMON, PT ASSISTED INTO WHEELCHAIR WITH 2PA PIVOT AND THEN ESCORTED OUT TO WHEELCHAIR VAN WITH GEOPHYSICAL ENGINEER.
== END 2023-08-11 14:00 | disposition home or self-care (01) | DRG 871 ==
LOC: ED 07:29 → MS 12:05 → CCU 12:05
PROVIDERS: Emergency Medicine; Internal Medicine; ADMIT Family Medicine; ATTEND Family Medicine
PROC: 30233N1 Transfusion of Nonautologous Red Blood Cells into Peripheral Vein, Percutaneous Approach (ICD-10-PCS; principal; 2023-08-07)
PROC: 3E03329 Introduction of Other Anti-infective into Peripheral Vein, Percutaneous Approach (ICD-10-PCS; 2023-08-07)
DX: A41.9 Sepsis, unspecified organism (principal); J18.9 Pneumonia, unspecified organism; N17.9 Acute kidney failure, unspecified; D64.9 Anemia, unspecified; I50.9 Heart failure, unspecified; E03.9 Hypothyroidism, unspecified; I11.0 Hypertensive heart disease with heart failure; K21.9 Gastro-esophageal reflux disease without esophagitis; E83.42 Hypomagnesemia; I25.10 Atherosclerotic heart disease of native coronary artery without angina pectoris; I48.91 Unspecified atrial fibrillation; R79.1 Abnormal coagulation profile; E78.5 Hyperlipidemia, unspecified; Z98.890 Other specified postprocedural states; Z88.8 Allergy status to other drugs, medicaments and biological substances; Z88.1 Allergy status to other antibiotic agents; Z88.5 Allergy status to narcotic agent; Z79.82 Long term (current) use of aspirin; Z79.890 Hormone replacement therapy; Z79.899 Other long term (current) drug therapy
CPT/HCPCS: 36415; 36430; 51702; 71045; 71260; 73552; 73560; 73600; 80048; 80053; 80202; 81001; 83605; 83735; 83880; 84100; 84443; 84484; 85025; 85060; 85379; 86850; 86900; 86901; 86922; 87040; 93005; 93010; 93306; 93971; 94640; 94660; 94760; 97110; 97112; 97163; 97164; 97166; 97530; 97535; 99285-25; A9270; C9113; J0692; J0696; J1940; J2405; J3370; J3475; J7030; J7040; J7060; J7121; P9016; Q9967

== ENCOUNTER 2023-10-05 12:38 | Inpatient (IN) | payer MEDICARE, OTHER ==
[~2023-10-05] VITALS: Ht 165.1 cm; Wt 82.5 kg
[~2023-10-05 12:38] MED LIST: ACETAMINOPHEN325 M1 PO; ATENOLOL100 MG PO; ATORVASTATIN CA20 MG PO; BISACODYL10 MG PR; BUDESONIDE1 MG/2 ML INH; CEFDINIR300 MG PO; CELECOXIB200 MG PO; DILTIAZEM HCL90 MG PO; FLUTICASONE-SA1 EAC3 INH; GABAPENTIN100 MG PO; HYDRALAZINE HCL25 MG PO; HYDROCHLOROTHIA50 MG PO; ISOSORBIDE MONO30 MG PO; LEVOTHYROXINE150 MC1 PO; LOSARTAN POTAS100 MG PO; MELATONIN3 MG PO; METOPROLOL TAR100 MG PO; MIRALAX17 GM PO; MONTELUKAST SOD10 MG PO; ONDANSETRON HCL4 MG PO; PANTOPRAZOLE SO40 MG PO; PHYSICIANS1000 MCG/1 INJ; SENNA LAX8.6 MG PO; SEROQUEL25 MG PO; SIMVASTATIN40 MG PO; SOLIFENACIN SUC10 MG PO; THERA-D50 MCG PO; VENTOLIN HFA18 GM INH; VITAMIN B COMP0.4 MG PO
[2023-10-05] MEDS ORDERED: CEFTRIAXONE/SODIUM CHLORIDE 2 GM/100 ML PIGGYBACK IV ONE (13:00)
[2023-10-05] MEDS ORDERED: SODIUM CHLORIDE 0.9% 1,000 ML IV ONE (13:00)
[2023-10-05 13:39] LABS: BASOPHILS 0.6 % (0-2); EOSINOPHILS 0.1 % (0-6); HEMATOCRIT 21.5 % (35.0-50.0); HEMOGLOBIN 6.8 g/dL (12.0-18.0); LYMPHOCYTES 31.5 % (24-44); MCH 33.1 (27-36); MCHC 31.8 g/dl (30-36); MCV 104.2 fl (81-99); MONOCYTES 1.2 % (0-12); NEUTROPHILS 66.6 % (39-80); PLATELET COUNT 274 K/uL (140-440); RBC 2.06 M/ul (4.3-5.7); RDW 20.6 (10.5-15.0)
[2023-10-05 13:46] LABS: INFLUENZA B NAA NEGATIVE (NEGATIVE); RESPIRATORY SYNCYTIAL VIR NAA NEGATIVE (NEGATIVE)
[2023-10-05 13:52] LABS: ALBUMIN 2.6 g/dL (3.4-5.0); ALBUMIN/GLOBULIN RATIO 0.84 (1.1-2.4); ANION GAP 20.8 (7-21); BILIRUBIN, TOTAL 0.3 ng/dL (0.2-1.0); BUN/CREATININE RATIO 37.64 (6.0-28.6); CALCIUM 8.3 mg/dL (8.5-10.1); CREATININE, SERUM 2.55 mg/dL (0.55-1.02); POTASSIUM 5.8 mmol/L (3.5-5.1); PROTEIN, TOTAL 5.7 g/dL (6.4-8.2)
[2023-10-05 13:56] LABS: LACTIC ACID, BLOOD 2.1 mmol/L (0.4-2.0)
[2023-10-05] MEDS ORDERED: LIDOCAINE 2% VISCOUS 6 ML SYR TOP ONE (15:15)
[2023-10-05 15:46] LABS: BILIRUBIN, URINE NEGATIVE (negative); BLOOD/HGB, URINE TRACE-I (Negative); KETONE, URINE NEGATIVE (Negative); LEUK ESTERASE, URINE MODERATE (negative); NITRITE, URINE NEGATIVE (negative); PH, URINE 8.5 (5-7)
[2023-10-05 15:59] LABS: WHITE BLOOD CELLS, URINE >50 /HPF (0-5)
[2023-10-05 16:00] LABS: BACTERIA, URINE 1+ /hpf (negative); CASTS, URINE NONE SEEN \\lpf; COLLECTION TYPE, URINE CLEAN CATCH; CRYSTALS, URINE NONE SEEN (0-1+); EPITHELIAL CELLS, URINE SQUAMOUS 3+ /lpf (0-1+); REFLEX CULTURE, URINE No (No)
[2023-10-05] MEDS ORDERED: PROCHLORPERAZINE EDISYLATE 10 MG/2 ML VIAL IV PRN (17:00)
[2023-10-05] MEDS ORDERED: LACTATED RINGER'S 1,000 ML IV ONE ×2 (17:00→21:30)
[2023-10-05] MEDS ORDERED: ACETAMINOPHEN 325 MG TAB PO PRN (17:00)
[2023-10-05] MEDS ORDERED: ondansetron HCL 4 MG/2 ML VIAL IV PRN (17:00)
--- NOTE | 2023-10-05 18:15 | NUR ---
PATIENT ARRIVED TO CCU ROOM 130 VIASTRETCHER AND RETAIL SUPPORT SPECIALIST ANAMARIA. PER REPORT PATIENTS HR HAS CONTINUED TO INCREASE AND LOC HAS DELINED. PATIENT IS ALERT TO NAME AND PLACE BUT DROWSY. PATIENT ARRIVED WITH 2 IVS. PER REPORT PATIENT ONLY RECIEVED 1L BOLUS OF FLUIDS I NTHE ED. PICTURES TAKEN OF PATIENTS COCCYX. NEW FOAM BOARDER PAD PLACED ON PATIENTS COCCYX. PATIENT PAINFUL WITH MOVING AND PROVIDING SKIN CHECK. PATIENT URINE NOTED TO BE VERY CLUMPY, AND MILKY COLORATION. WILL UPDATE MD OF PATIENT CHANGES UPON ARRIVAL TO CCU.
[2023-10-05 18:22] VITALS: BP 102/82
[2023-10-05] MEDS ORDERED: LACTATED RINGER'S 1,000 ML IV SCH (18:30)
[2023-10-05] MEDS ORDERED: ALBUTEROL/IPRATROPIUM 3 ML NEB INH PRN (18:30)
[2023-10-05 18:43] LABS: BILIRUBIN, URINE NEGATIVE (negative); KETONE, URINE TRACE (Negative)
[2023-10-05 18:44] LABS: BLOOD/HGB, URINE MODERATE (Negative); LEUK ESTERASE, URINE POSITVE (negative); NITRITE, URINE NEGATIVE (negative); PH, URINE 8.5 (5-7)
--- NOTE | 2023-10-05 18:47 | NUR ---
CALLED AND UPDATED MD DUKES OF PATIENTS LOC, VITALS, HEART RATE, AND URINE IN CUMMINS. SEE NEW ORDERS. PER MD DO NOT GET MISSED LACTIC FROM 1600 LABS ARE SCHEDULED FOR 1999. WILL START MAINTANCE FLUIDS AFTER BOLUS IS FINISHED. MONITOR PATIENT FOR FLUID OVERLOAD.
[2023-10-05 18:48] LABS: BACTERIA, URINE 2+ /hpf (negative); CASTS, URINE NONE SEEN \\lpf; CRYSTALS, URINE AMORPHOUS PHOSPH 2+ (0-1+); EPITHELIAL CELLS, URINE SQUAMOUS 1+ /lpf (0-1+); REFLEX CULTURE, URINE Yes (No); WHITE BLOOD CELLS, URINE >50 /HPF (0-5)
[2023-10-05 18:49] LABS: COLLECTION TYPE, URINE CATH
--- NOTE | 2023-10-05 19:56 | NUR ---
SBAR REPORT RECEIVED FROM YENNY TORRES. ALL EVENTS OF THE SHIFT WERE DISCUSSED AND PLAN OF CARE REVIEWED. PATIENT MICHELE IS TACHYCARDIC 142, NORMOTENSIVE, 99.2 AXILLARY TEMP, FORGETTFUL AND ORIENTED TO SELF MD LAZO IN DEPARTMENT. NEW ORDERS WILL BE PLACED TO ADDRESS HR
[2023-10-05] MEDS ORDERED: BUDESONIDE 0.5 MG/2 ML VIAL INH SCH (20:00)
[2023-10-05 20:36] LABS: HEMOGLOBIN 7.3 g/dL (12.0-18.0); LYMPHOCYTES 23.6 % (24-44); MCHC 31.7 g/dl (30-36)
[2023-10-05 20:39] LABS: BASOPHILS 0.6 % (0-2); EOSINOPHILS 0.3 % (0-6); MONOCYTES 1.2 % (0-12); NEUTROPHILS 74.3 % (39-80); PLATELET COUNT 257 K/uL (140-440); RBC 2.21 M/ul (4.3-5.7); RDW 20.9 (10.5-15.0)
--- NOTE | 2023-10-05 20:41 | NUR ---
SCHEDULED METOPROLOL AND PRN ACETAMINOPHEN GIVEN FOR AN AXILLARY TEMP OF 100.3. MICHELE IS NOTED TO HAVE BODY SHAKES AND STATES THAT SHE IS COLD. 240CC H20 GIVEN. SHE TOLERATED FLUIDS WELL. STRONG COUGH. ABLE TO CLEAR AIRWAY. CURRENT HR 148.
[2023-10-05 20:44] VITALS: BP 123/60
[2023-10-05 20:48] LABS: ANION GAP 24.5 (7-21); BUN/CREATININE RATIO 37.84 (6.0-28.6); CALCIUM 8.5 mg/dL (8.5-10.1); CREATININE, SERUM 2.51 mg/dL (0.55-1.02); POTASSIUM 5.5 mmol/L (3.5-5.1)
[2023-10-05] MEDS ORDERED: METOPROLOL TARTRATE 100 MG TAB PO SCH (21:00)
[2023-10-05] MEDS ORDERED: dilTIAZem HCL 60 MG TAB PO SCH (21:00)
[2023-10-05] MEDS ORDERED: Calcium Gluconate in NS 1,000 MG/50 ML BAG IV ONE (21:30)
[2023-10-05 21:58] VITALS: BP 107/58
[2023-10-05 22:38] VITALS: BP 111/83
--- NOTE | 2023-10-05 22:57 | NUR ---
REPOSITIONED ONTO RIGHT SIDE WITH PILLOWS. POOR U/O DISCUSSED WITH MD LAZO. WILL REASSESS AFTER FLUID BOLUS
[2023-10-05 23:40] VITALS: BP 106/67
[2023-10-06] VITALS (22 sets, daily range): BP systolic 87–124; BP diastolic 38–105
--- NOTE | 2023-10-06 00:11 | NUR ---
LR FLUID BOLUS COMPLETED. MICHELE APPEARS COMFORTABLE AND ENDORSES COMFORT. PERSISTENT OLIGURIA. 25CC THIS HOUR
--- NOTE | 2023-10-06 01:15 | NUR ---
PATIENT MICHELE DENIES ANY NEEDS AT THIS TIME. ANNA WILKINS WAS SUCCESSFUL OBTAINING A SAMPLE. AWAITING RESULTS FOR BMP
[2023-10-06 01:28] LABS: ANION GAP 21.4 (7-21); BUN/CREATININE RATIO 38.05 (6.0-28.6); CALCIUM 8.1 mg/dL (8.5-10.1); CREATININE, SERUM 2.47 mg/dL (0.55-1.02); POTASSIUM 5.4 mmol/L (3.5-5.1)
--- NOTE | 2023-10-06 02:15 | NUR ---
U/O THIS HOUR WAS QUANTITY SUFFICIENT 100CC. O2 TITRATED DOWN TO ROOM AIR. CURRENT SPO2 IS 96% MICHELE WAS REPOSITIONED ONTO THE LEFT SIDE
--- NOTE | 2023-10-06 03:36 | NUR ---
MICHELE ENDORSED A "DRY MOUTH" THIS HOUR. H20 PROVIDED. SHE WAS THANKFUL AND IS NOW RESTING WITH EYES CLOSED. U/O MEASURED FOR 75CC THIS HOUR. PERSISTENT TACHYCARDIA 126BPM
[2023-10-06] MEDS ORDERED: METOPROLOL TARTRATE 5 MG/5 ML VIAL IV PRN (03:45)
--- NOTE | 2023-10-06 04:51 | NUR ---
PRN LOPRESSOR ADMINISTERED FOR HR SUSTAINED ABOVE 120. TOLERATED WELL
--- NOTE | 2023-10-06 05:36 | NUR ---
AXILLARY TEMP CHECKED 102.8. ICE PACKS AND ACETAMINOPHEN WILL BE PLACED AND GIVEN. WILL RECHECK IN 1HR
[2023-10-06 05:45] LABS: BASOPHILS 0.7 % (0-2); EOSINOPHILS 0.7 % (0-6); HEMATOCRIT 23.2 % (35.0-50.0); HEMOGLOBIN 7.5 g/dL (12.0-18.0); LYMPHOCYTES 24.2 % (24-44); MCH 32.9 (27-36); MCHC 32.3 g/dl (30-36); MONOCYTES 1.2 % (0-12); NEUTROPHILS 73.2 % (39-80); PLATELET COUNT 239 K/uL (140-440); RBC 2.27 M/ul (4.3-5.7); RDW 20.9 (10.5-15.0)
--- NOTE | 2023-10-06 05:50 | NUR ---
ICE PACKS PLACED UNDER EACH ARM.
[2023-10-06] MEDS ORDERED: LEVOTHYROXINE SODIUM 150 MCG TAB PO SCH (06:00)
--- NOTE | 2023-10-06 06:01 | NUR ---
MD LAZO NOTIFIED OF THE FOLLOWING CURRENT TEMP- 102.8 PERSISTENT TACHYCARDIA- SEE EMAR FOR PRN LOPRESSOR POOR U/O VERBAL ORDER TO GIVE 0900 CARDIZEM NOW AND 500CC LR BOLUS
[2023-10-06 06:02] LABS: ALBUMIN 2.5 g/dL (3.4-5.0); ALBUMIN/GLOBULIN RATIO 0.74 (1.1-2.4); ANION GAP 24.6 (7-21); BILIRUBIN, TOTAL 0.3 ng/dL (0.2-1.0); BUN/CREATININE RATIO 36.12 (6.0-28.6); CALCIUM 8.4 mg/dL (8.5-10.1); CREATININE, SERUM 2.63 mg/dL (0.55-1.02); PHOSPHORUS, INORGANIC 5.7 mg/dL (2.5-4.9); POTASSIUM 5.6 mmol/L (3.5-5.1); PROTEIN, TOTAL 5.9 g/dL (6.4-8.2)
[2023-10-06 06:03] LABS: MAGNESIUM 0.9 mg/dL (1.8-2.4)
--- NOTE | 2023-10-06 06:10 | NUR ---
CRITICAL LAB CALLED TO MD LAZO. MAGNESIUM 0.9. VERBAL ORDER FOR 4GM OF MAGNESIUM REPLACEMENT
[2023-10-06] MEDS ORDERED: LACTATED RINGER'S 500 ML IV ONE (06:15)
[2023-10-06] MEDS ORDERED: MAGNESIUM SULFATE 4 GM/100 ML BAG IV ONE (06:30)
--- NOTE | 2023-10-06 06:48 | NUR ---
CURRENT TEMP 101.4, MAG REPLACEMENT AND FLUID BOLUS BEING ADMINISTERED, U/O 30CC THIS HOUR
--- NOTE | 2023-10-06 07:45 | NUR ---
REPORT RECIEVED FROM FIELD NATURALIST P
--- NOTE | 2023-10-06 07:45 | NUR ---
REPORT RECIEVED FROM SAW GRINDER RN. PER REPORT PATIENT LESS ALERT THIS AM AND HAS CONTINUED TO HAVE DECREASED URINE OUTPUT OVERNIGHT. [facility]
--- NOTE | 2023-10-06 08:03 | NUR ---
PATIENT IS A [place] PATIENT.H&P, ER RECORD AND MEDICATIONS SENT FOR REVIEW.
[2023-10-06] MEDS ORDERED: FLEET ENEMA133 ML PR (08:23)
[2023-10-06] MEDS ORDERED: LOPERAMIDE2 M1 PO (08:25)
[2023-10-06] MEDS ORDERED: IPRAT-ALBUT 0.5-3 ML INH (08:25)
[2023-10-06] MEDS ORDERED: MILK OF MA400 MG/5 M PO (08:28)
[2023-10-06] MEDS ORDERED: FLORASTOR250 MG PO (08:34)
[2023-10-06] MEDS ORDERED: METAMUCIL660 GM PO (08:35)
[2023-10-06] MEDS ORDERED: TIZANIDINE HCL2 MG PO (08:37)
[2023-10-06] MEDS ORDERED: TYLENOL EXTRA500 MG PO (08:38)
--- NOTE | 2023-10-06 08:40 | NUR ---
MED REC COMPLETE
--- NOTE | 2023-10-06 09:01 | NUR ---
PT PLACED ON 2LPM SPO2 89% PT IS ANEMIC AND WOULD BENEFIOT FROM OXYGEN THERAPY
--- NOTE | 2023-10-06 09:16 | NUR ---
PATIENT IS SLEEPING AT THIS TIME. THE DESIGN AND SALES CONSULTANT WILL RETURN TO DO THE PATIENT ASSESSMENT. PATIENT IS FROM [facility]. PATIENT UPDATES H&P AND ER SUMMARY AND A MEDICATION LIST SENT TO SNF.
--- NOTE | 2023-10-06 09:45 | NUR ---
PATIENT VERY DROWSY AND DIFFICULT TO UNDERSTAND. MD IN TO SEE PATIENT AND DISSCUSS PLAN OF CARE. AWAITING LABS AT 1000. UNABLE TO GIVE AM PO MEDICATIONS D/T DROWSINESS. PATIENTS DAUGHTER CALLED AND WAS UPDATED ON PLAN OF CARE. NO OTHER QUESTIONS AT THIS TIME. MD WILL CALL AND UPDATE PATIENTS DAUGHTER ON PLAN OF CARE ONCE LABS ARE COMPLETED. PATIENT RESTING AND REPOSITIONED. CUMMINS CATHETER REMAINS IN PLACE. CALL LIGHT IN REACH.
[2023-10-06 10:50] LABS: BUN/CREATININE RATIO 35.88 (6.0-28.6); CALCIUM 8.1 mg/dL (8.5-10.1); CREATININE, SERUM 2.48 mg/dL (0.55-1.02)
[2023-10-06 10:56] LABS: PHOSPHORUS, INORGANIC 5.4 mg/dL (2.5-4.9)
--- NOTE | 2023-10-06 11:32 | NUR ---
CALLED AND UPDATED MD ON URINE OUTPUT AND PATIENTS COGNITIVE STAUTS. UPDATED THAT DAUGHTER CALLED AROUND 0945 AND ASKED TO BE UPDATED WHEN LABS WERE BACK.
[2023-10-06] MEDS ORDERED: PHARMACY RENAL DOSE ADJUSTMENT 1 DOSE MISC PO SCH (12:00)
[2023-10-06 12:22] LABS: ABO A; ANTIBODY SCREEN POSITIVE; RH POSITIVE
[2023-10-06 12:30] LABS: ANTIBODY IDENTIFICATION Anti-Ch
--- NOTE | 2023-10-06 13:00 | NUR ---
PATIENT DOWN TO CT WITH THIS RN AND CLINIC OFFICE MANAGER. PATIENT HAS REMAINED VERY DROWSY UNTIL THIS TIME. PATIENT MORE ALERT AT THIS TIME BUT SPEECH REMAINS DIFFICULT TO UNDERSTAND AND PATIENT FORGETFUL. PATIENT DENIES PAIN UNLESS MOVED IN BED. PATIENT HAS CATHETER IN PLACE WITH Q1 HOUR MONITORING. PATIENT REPOSITIONED WITH PILLOW SUPPORT AND BEDDING CHANGED DURING CT SCAN.
[2023-10-06] MEDS ORDERED: CEFEPIME HCL/D5W 1 GM/100 ML PIGGYBACK IV SCH (13:30)
--- NOTE | 2023-10-06 14:00 | NUR ---
SPOKE WITH MD ABOUT PATIENT WAKING MORE AFTER CT SCAN. PER MD GIVE PO METOPROLOL IF PARAMETERS ARE MET AND PATIENT AWAKE ENOUGH TO TAKE PO. PATIENT TOELRATED PILSL WELL. PUDDING GIVEN AT THIS TIME WELL. PATIENT NOW RESTING AT THIS TIME.
--- NOTE | 2023-10-06 14:12 | NUR ---
SPOKE TO PATIENT'S DAUGHTER ABOUT THE PLAN OF CARE BECAUSE IS VERY SLEEPY. THE DAUGHTER IS DAVID.THE DAUGHTER HELPS WITH HISTORY AND QUESTIONS FOR THE CHANGE OF ADDRESS CLERK THE DAUGHTER STATES HER MOTHER HAS BEEN AT [facility] SINCE JULY. THE PATIENT HAS A PCP WHICH IS DR. LUNDBERG IN [place] [facility] [place] AND DR. VEGA. PATIENT HAS MULTIPLE MYELOMA END STAGE. PATIENT USES A WALKER OR WHEELCHAIR FOR WHEN THE PATIENT IS STRONG ENOUGH. THE PATIENT PLANS TO GO HOME AFTER REHAB. PATIENT WILL HAVE CARE GIVERS AT HOME WHO TTHE STATE IS TAKING CARE OF FOR THE PATIENT. FAMILY IS VERY SUPPORTIVE AND WILL FO;;W THE MOTHERS WISHES.
--- NOTE | 2023-10-06 14:30 | NUR ---
CRITICAL LABS REPORTED TO MD AND UPDATED ON URINE OUTPUT. NEW ORDERS FOR PELVIS CT D/T HYDRONEPHROSIS NOTED ON ABD CT SCAN. PATIENT RESTING IN EBD WITH MUSIC ON AT THIS TIME PER REQUEST. PATIENT FORGETFUL OF PLACE, AND SITUATION, BUT EASILY REORIENTABLE. PATIENT REMAINS DROWSY BUT EASILY AWAKENS.
--- NOTE | 2023-10-06 15:00 | NUR ---
PATIENT DOWN TO CT WITH YENNY DEL RIO AND PACKAGING SUPERVISOR KHALIDA.
--- NOTE | 2023-10-06 15:20 | NUR ---
PATIENT BACK FROM CT AND TOLERATED WELL. PATIENT REPOSITIONED WITH PILLOW SUPPORT. CALL LIGHT IN REACH. MUSIC ON FOR PATIENTS COMOFRT.
--- NOTE | 2023-10-06 16:11 | NUR ---
UR CLINICAL REVIEW: 2MN SATYA, MEETS MEDICARE INPT 10/05/23 @ 1658 ORDER MATCHES STATUS NO AUTH REQUIRED PER MEDICARE RULES PLAN TO RETURN TO [facility] WHEN STABLE
[2023-10-06 16:20] LABS: BASOPHILS 0.4 % (0-2); EOSINOPHILS 0.3 % (0-6); HEMATOCRIT 19.8 % (35.0-50.0); HEMOGLOBIN 6.3 g/dL (12.0-18.0); LYMPHOCYTES 17.9 % (24-44); MCH 33.3 (27-36); MONOCYTES 0.7 % (0-12); NEUTROPHILS 80.7 % (39-80); PLATELET COUNT 212 K/uL (140-440); RDW 21.7 (10.5-15.0)
[2023-10-06 16:29] LABS: ANION GAP 21.4 (7-21); BUN/CREATININE RATIO 34.25 (6.0-28.6); CALCIUM 8.5 mg/dL (8.5-10.1); CREATININE, SERUM 2.54 mg/dL (0.55-1.02); POTASSIUM 5.4 mmol/L (3.5-5.1)
[2023-10-06 16:33] LABS: PHOSPHORUS, INORGANIC 5.8 mg/dL (2.5-4.9)
--- NOTE | 2023-10-06 17:06 | NUR ---
AT THE BEDSIDE MAILING MANAGER DUPDATE ON IMAGING AND LABS. MD DISCUSSED PLAN OF CARE WITH PATIENT AND HER DAUGHTER. PATIENT WILL TRANSFER FOR KIDNEY STONE REMOVAL. PATIENT AND DAUGHTER AGREEABLE TO PLAN OF CARE.
[2023-10-06] MEDS ORDERED: Calcium Gluconate in NS 1,000 MG/50 ML BAG IV ONE (18:00)
--- NOTE | 2023-10-06 18:35 | NUR ---
MD DUKES SPOKE WITH HOSPITALIST AND UROLOGIST AT [facility]. PATIENT WILL HAVE TWO UNITS PRBC TRANSFUSED PRIOR TO TRANSFER TO [facility]. PER MD LAZO BLOOD IS ALMOST TO LOGAN SIMON FROM [place]. PATIENT VITALS STABLE. PATIENT ALERT BUT FORGETFUL AT TIMES. PATIENT HAD HER ROOM MATE FROM [place] COME VISIT. PATIENT ALERT AND TALKATIVE WITH FRIENDS AT THAT TIME. PATIENT NOW LISTENING TO MUSIC PER REQUEST AND RESTING IN BED.
--- NOTE | 2023-10-06 19:25 | NUR ---
SBAR REPORT RECEIVED FROM YENNY TORRES. ALL EVENTS OF THE DAY WERE DISCUSSED AND PLAN OF CARE REVIEWED. MD LAZO AT BEDSIDE. UPDATED ON PLAN TO TRANSFER TO AN OUTSIDE HOSPITAL ONCE 2 UNITS OF BLOOD ARE TRANSFUSED. CONSENT SIGNED. PATIENT MICHELE HAS A RARE BLOOD TYPE. DUE TO THIS THE "LEAST INCOMPATIBLE" BLOOD WILL BE TRANSFUSED. MICHELE WILL BE MONITORED CLOSELY FOR ADVERSE REACTIONS. DISCUSSED PLAN WITH MICHELE AND SHE IS AGREEABLE TO PLAN. SHE IS NOTED TO BE TEARFUL BECAUSE SHE WOULD RATHER STAY AT THIS HOSPITAL. SHE REQUESTED THAT THIS RN GO WITH HER. I EXPLAINED THAT I COULD NOT BUT THAT SHE WOULD RECEIVED GREAT CARE AT THE OUTSIDE HOSPITAL. 25CC URINE TIPPED. AXILLARY TEMP 101.5. SEE EMAR AND ADDITIONAL NOTES FOR INTERVENTIONS
--- NOTE | 2023-10-06 19:38 | NUR ---
ICE PACKED PLACED UNDER EACH ARM FOR TEMP CONTROL
--- NOTE | 2023-10-06 20:43 | NUR ---
AWAITING BLOOD PRODUCTS TO ARRIVE FROM MODEL. MICHELE IS NOTED TO BE ORIENTED TO SELF AND PLACE. CURRENT TEMP 99.7. PATIENT DENIES ANY PAIN AND ENDORSES THAT SHE IS "VERY SLEEPY". SHE STATES THAT HER NORMAL SLEEP ROUTINE IN TO HAVE LIGHTS OUT AT 2030 AT [place]. PM MEDS WILL BE GIVEN AND LIGHTS WILL BE DIMMED FOR COMFORT AND PROMOTION OF REST.
--- NOTE | 2023-10-06 21:20 | NUR ---
DURING 21OO MED PASS PATIENT MICHELE WAS NOTED TO BE COUGHING WHILE DRINKING WATER. SHE WAS ABLE TO CLEAR HER THROAT. REATTEMPT PRODUCED THE SAME RESULTS. A PRECAUTIONARY MEASURE THE MEDS WERE CRUSHED IN APPLESAUCE WHICH MICHELE WAS ABLE TO SWALLOW WITHOUT INCIDENT
--- NOTE | 2023-10-06 22:04 | NUR ---
GOT PT VITALS. PT IS SLEEPING AND HAS CALL LIGHT
--- NOTE | 2023-10-06 22:12 | NUR ---
MICHELE IS RESTING WITH EYES CLOSED. SHE DENIES ANY NEEDS AT THIS POINT AND SEEMS CONTENT TO REST FOR THE EVENING
--- NOTE | 2023-10-06 22:32 | NUR ---
IV PUMP ALARMING, NEW BAG IV FLUIDS PROVIDED. PT STATES NO OTHER NEEDS. CALL LIGHT IN REACH. RAILS UP, DOOR OPEN.
[2023-10-06 23:19] LABS: IS CROSSMATCH INCOMPATIBLE
--- NOTE | 2023-10-06 23:20 | NUR ---
2302= 1UNIT PRBC TRANSFUSION INITIATED AT 75CC PER HOUR. 2 RN VERIFICATION WITH YENNY KEE. 2317- VSS PER MONITOR. INCREASED RATE TO 20CC PER HOUR. NO ADVERSE REACTIONS NOTED. PATIENT IS RESTING WITH EYES CLOSED. SEE DOC FOR VS
[2023-10-06] MEDS ORDERED: FAMOTIDINE 20 MG/ 2 ML VIAL IV PRN (23:45)
[2023-10-06] MEDS ORDERED: diphenhydrAMINE HCL 50 MG/ML VIAL IV PRN (23:45)
--- NOTE | 2023-10-07 00:15 | NUR ---
MICHELE CONTINUES TO REST IN BED COMFORTABLY WITH EYES CLOSED. THIS RN HAS OBSERVERD HER CLOSELY WHILE IN ROOM. NO ADVERSE REACTIONS. MICHELE DENIES ANY DISCOMFORTS OF PAIN. WILL CONTINUE TO MONITOR
[2023-10-07 00:17] VITALS: BP 106/46
--- NOTE | 2023-10-07 00:50 | NUR ---
PRBC INFUSION COMPLETED AT 0050. VSS AND WDL. SEE BLOOD DOCUMENTATION FOR VSS AND TRENDS. MICHELE CONTINUES TO REST WITH EYES CLOSED. NO ADVERSE REACTIONS NOTED.
[2023-10-07 02:05] VITALS: BP 110/42
[2023-10-07 03:54] VITALS: BP 119/65
--- NOTE | 2023-10-07 04:23 | NUR ---
SBAR REPORT CALLED TO YENNY LEMUS. ALL EVENTS OF THIS HOSPITILIZATION WERE DISCUSSED AND LABS REVIEWED. ALL QUESTIONS AND CONCERNS WERE ANSWERED AND/OR CLARIFIED. MICHELE LEFT VIA [facility] TRANSPORT AT 0435 ON [facility]. VSS AND WDL. 4L NC
--- NOTE | 2023-10-07 04:43 | NUR ---
PATIENT MICHELE WAS SENT WITH ALL BELONGINGS
[2023-10-07 08:33] LABS: CALCIUM IONIZED PH 7.4 1.14 mmol/L (1.09-1.30); CALCIUM,IONIZED SERUM 1.21 mmol/L (1.09-1.30)
[2023-10-07 12:18] LABS: BETA-HYDROXYBUTYRIC ACID 10.1 mg/dL (0.0-3.0)
--- NOTE | 2023-10-07 23:13 | EKG ---
[facility] [address] [facility] [place] [address] Signed Sinus tachycardia Nonspecific T wave abnormality Abnormal ECG When compared with ECG of 10-AUG-2023 09:43, No significant change was found Confirmed by Siena Lazo MD () on 10/07/2023 11:13:28 PM Electronically Signed By: SIENA LAZO MD 10/07/23 2313 PATIENT NAME: MICHELE RODRIGUEZ Electrocardiogram DATE OF : 36 PHYSICIAN: SIENA LAZO MD REPORT #: [id number] REPORT IS CONFIDENTIAL AND NOT TO BE RELEASED WITHOUT AUTHORIZATION
== END 2023-10-07 04:35 | disposition short-term general hospital (02) | DRG 872 ==
LOC: ED 12:38 → CCU 16:58
PROVIDERS: Emergency Medicine; ADMIT Family Medicine; ATTEND Family Medicine
DX: A41.9 Sepsis, unspecified organism (principal); N17.9 Acute kidney failure, unspecified; N13.6 Pyonephrosis; N20.1 Calculus of ureter; G93.49 Other encephalopathy; I50.30 Unspecified diastolic (congestive) heart failure; D64.9 Anemia, unspecified; B96.4 Proteus (mirabilis) (morganii) as the cause of diseases classified elsewhere; E83.39 Other disorders of phosphorus metabolism; E87.5 Hyperkalemia; E03.9 Hypothyroidism, unspecified; E78.5 Hyperlipidemia, unspecified; J45.909 Unspecified asthma, uncomplicated; E66.9 Obesity, unspecified; Z68.31 Body mass index [BMI] 31.0-31.9, adult; K21.9 Gastro-esophageal reflux disease without esophagitis; I25.10 Atherosclerotic heart disease of native coronary artery without angina pectoris; M19.90 Unspecified osteoarthritis, unspecified site; Z79.82 Long term (current) use of aspirin; Z88.5 Allergy status to narcotic agent; Z79.890 Hormone replacement therapy; Z79.899 Other long term (current) drug therapy; Z98.890 Other specified postprocedural states; Z88.1 Allergy status to other antibiotic agents; I11.0 Hypertensive heart disease with heart failure; I48.91 Unspecified atrial fibrillation
CPT/HCPCS: 36415; 36430; 51702; 70450; 71045; 72192; 74150; 80048; 80053; 81001; 82553; 83605; 83615; 83735; 84100; 84550; 85025; 86850; 86870; 86900; 86901; 86922; 87040; 87077; 87088; 87186; 87502; 93005; 93010; 94640; 99285-25; A9270; J0692; J0696; J3475; J7030; J7121; U0002

== ENCOUNTER 2023-10-22 22:22 | Emergency (ER) | payer MEDICARE, OTHER ==
[~2023-10-22] VITALS: Ht 165.1 cm; Wt 100.0 kg
[~2023-10-22 22:22] MED LIST changes: +FLEET ENEMA133 ML PR; +FLORASTOR250 MG PO; +IPRAT-ALBUT 0.5-3 ML INH; +LOPERAMIDE2 M1 PO; +METAMUCIL660 GM PO; +MILK OF MA400 MG/5 M PO; +TIZANIDINE HCL2 MG PO; +TYLENOL EXTRA500 MG PO
--- OUTSIDE RECORDS SUMMARY | 2023-10-22 22:23 | XMS ---
PreManage Notification: MICHELE RODRIGUEZ Security Arcade Attendant Events No recent Security Events currently on file CRITERIA MET - PDM - [facility] - 2 Visits in 30 Days CARE PROVIDERS Tricia Alexander Outside Sales Executive/Demand Planning Analyst 09/09/2023-Current PHONE: [phone] Coy Ng Dental+ Dentist: Chemical Sales Representative [facility] Dorothy PHONE: [phone] Deniz Ng- Dentist: Chemical Sales Representative [facility] PHONE: [phone] BERNADINE BOLAÑOS Nurse Practitioner: Family Current PHONE: [phone] MISTY TAVERA Shoe Singer: Foot \T\ Ankle Surgery Current PHONE: [phone] RODRIGO ENAMORADO Internal Medicine Current PHONE: [phone] JACKSON GRANDE Nurse Practitioner: Family Current PHONE: [phone] TAMIKA RAMOS Internal Medicine Current PHONE: Unknown REUBEN VERDUGO Family [facility] Current PHONE: Unknown SHO BLEVINS Nurse Practitioner: Family Current PHONE: [phone] ANGEL PEREZ Internal Medicine Current PHONE: [phone] Casey Fuentes DO Family Medicine Current PHONE: Unknown DONAVON GAYLE Nurse Practitioner: Psychiatric/Mental Health Current PHONE: [phone] DANIEL CAAL Nurse Practitioner Will [place] PHONE: [phone] KYREE SRIVASTAVA [facility] Current PHONE: [phone] KARLA CHENEY Nurse Practitioner: Family Current PHONE: Unknown [facility] Clinic/Center: [facility] Current WORKERS [facility] \[facility] ([facility]) [facility] PHONE: [phone] Mitzy has no Care Guidelines for this patient. E.D. VISIT COUNT (12 MO.) 3 [facility] 1 Zohaib Sher [facility] TOTAL 4 NOTE: Visits indicate total known visits. ED/UCC VISIT TRACKING (12 MO.) 10/22/2023 22:22 [facility] TYPE: Emergency COMPLAINT: - WEAKNESS 10/05/2023 12:38 [facility] TYPE: Emergency COMPLAINT: - VOMITING 08/07/2023 07:29 [facility] [place] TYPE: Emergency COMPLAINT: - CHEST PAIN 07/23/2023 18:50 [facility] [place] TYPE: Emergency DIAGNOSES: - Acute kidney failure, unspecified - Anemia, unspecified - Hyperkalemia - Unspecified fracture of shaft of right fibula, initial encounter for closed fracture - Unspecified fracture of shaft of right tibia, initial encounter for closed fracture - RIGHT LEG PAIN INPATIENT VISIT TRACKING (12 MO.) 10/07/2023 04:57 [facility] [place] TYPE: Medical Surgical DIAGNOSES: - Hydronephrosis with renal and ureteral calculous obstruction - Unspecified hydronephrosis - acute kidney injury 10/05/2023 16:58 [facility] [place] TYPE: Critical Care COMPLAINT: - CHRISTINE, ANEMIA DIAGNOSES: - Acute kidney failure, unspecified - Acute kidney failure, unspecified - Allergy status to narcotic agent - Allergy status to narcotic agent - Allergy status to other antibiotic agents - Allergy status to other antibiotic agents - Anemia, unspecified - Anemia, unspecified - Atherosclerotic heart disease of [place] coronary artery without angina pectoris - Atherosclerotic heart disease of [place] coronary artery without angina pectoris - Body mass index [BMI] 31.0-31.9, adult - Body mass index [BMI] 31.0-31.9, adult - Calculus of ureter - Calculus of ureter - Gastro-esophageal reflux disease without esophagitis - Gastro-esophageal reflux disease without esophagitis - Heart failure, unspecified - Hormone replacement therapy - Hormone replacement therapy - Hyperkalemia - Hyperkalemia - Hyperlipidemia, unspecified - Hyperlipidemia, unspecified - Hypertensive heart disease with heart failure - Hypothyroidism, unspecified - Hypothyroidism, unspecified - long-term (current) use of aspirin - manager intermediate (current) use of aspirin - Obesity, unspecified - Obesity, unspecified - Other disorders of phosphorus metabolism - Other disorders of phosphorus metabolism - Other encephalopathy - Other encephalopathy - Other manager intermediate (current) drug therapy - Other fdc (current) drug therapy - Other specified postprocedural states - Other specified postprocedural states - Proteus (mirabilis) (morganii) as the cause of diseases classified elsewhere - Proteus (mirabilis) (morganii) as the cause of diseases classified elsewhere - Pyonephrosis - Pyonephrosis - Sepsis, unspecified organism - Unspecified asthma, uncomplicated - Unspecified asthma, uncomplicated - Unspecified atrial fibrillation - Unspecified diastolic (congestive) heart failure - Unspecified osteoarthritis, unspecified site - Unspecified osteoarthritis, unspecified site 08/07/2023 12:05 [facility] [place] TYPE: Critical Care COMPLAINT: - PNEUMONIA,CHF DIAGNOSES: - Abnormal coagulation profile - Abnormal coagulation profile - Acute kidney failure, unspecified - Acute kidney failure, unspecified - Allergy status to narcotic agent - Allergy status to narcotic agent - Allergy status to other antibiotic agents - Allergy status to other antibiotic agents - Allergy status to other drugs, medicaments and biological substances - Allergy status to other drugs, medicaments and biological substances - Anemia, unspecified - Anemia, unspecified - Atherosclerotic heart disease of [place] coronary artery without angina pectoris - Atherosclerotic heart disease of [place] coronary artery without angina pectoris - Gastro-esophageal reflux disease without esophagitis - Gastro-esophageal reflux disease without esophagitis - Heart failure, unspecified - Heart failure, unspecified - Hormone replacement therapy - Hormone replacement therapy - Hyperlipidemia, unspecified - Hyperlipidemia, unspecified - Hypertensive heart disease with heart failure - Hypertensive heart disease with heart failure - Hypomagnesemia - Hypomagnesemia - Hypothyroidism, unspecified - Hypothyroidism, unspecified - long-term (current) use of aspirin - manager intermediate (current) use of aspirin - Other manager intermediate (current) drug therapy - Other fdc (current) drug therapy - Other specified postprocedural states - Other specified postprocedural states - Pneumonia, unspecified organism - Sepsis, unspecified organism - Sepsis, unspecified organism - Unspecified atrial fibrillation - Unspecified atrial fibrillation 07/24/2023 11:58 [facility] [place] TYPE: Medical Surgical COMPLAINT: - Anemia,renal failure,right tib/fib DIAGNOSES: - Anemia,renal failure,right tib/fib [email or web address]
[2023-10-22 22:44] LABS: PH, VENOUS 7.456 (7.31-7.41)
[2023-10-22] MEDS ORDERED: CEFTRIAXONE/SODIUM CHLORIDE 2 GM/100 ML PIGGYBACK IV ONE (22:45)
[2023-10-22] MEDS ORDERED: NOREPINEPHRINE BITARTRATE 250 ML IV SCH (22:45)
[2023-10-22] MEDS ORDERED: SODIUM CHLORIDE 0.9% 500 ML IV PRN (22:45)
[2023-10-22 22:47] LABS: BASOPHILS 0.5 % (0-2); EOSINOPHILS 0.1 % (0-6); HEMOGLOBIN 6.4 g/dL (12.0-18.0); LYMPHOCYTES 19.3 % (24-44); MCH 31.3 (27-36); MCHC 32.3 g/dl (30-36); MCV 97.1 fl (81-99); MONOCYTES 0.8 % (0-12); NEUTROPHILS 79.3 % (39-80); PLATELET COUNT 214 K/uL (140-440); RBC 2.06 M/ul (4.3-5.7); RDW 21.7 (10.5-15.0)
[2023-10-22 22:58] LABS: INR 1.22 (0.80-1.30)
[2023-10-22 23:07] LABS: LACTIC ACID, BLOOD 1.2 mmol/L (0.4-2.0)
[2023-10-22] MEDS ORDERED: ETOMIDATE 40 MG/20 ML VIAL ONE (23:07)
[2023-10-22 23:14] LABS: ALBUMIN 1.7 g/dL (3.4-5.0); ALBUMIN/GLOBULIN RATIO 0.61 (1.1-2.4); ANION GAP 16.4 (7-21); BILIRUBIN, TOTAL 0.3 ng/dL (0.2-1.0); BUN/CREATININE RATIO 25.37 (6.0-28.6); CALCIUM 7.4 mg/dL (8.5-10.1); CREATININE, SERUM 2.64 mg/dL (0.55-1.02); POTASSIUM 4.4 mmol/L (3.5-5.1); PROTEIN, TOTAL 4.5 g/dL (6.4-8.2)
[2023-10-22 23:15] LABS: PARTIAL THROMBOPLASTIN TIME 33.3 Sec (22.9-41.3)
[2023-10-22] MEDS ORDERED: ETOMIDATE 40 MG/20 ML VIAL IV ONE (23:15)
[2023-10-22] MEDS ORDERED: LIDOCAINE 2% VISCOUS 6 ML SYR TOP ONE (23:15)
[2023-10-22 23:53] LABS: INFLUENZA B NAA NEGATIVE (NEGATIVE); RESPIRATORY SYNCYTIAL VIR NAA NEGATIVE (NEGATIVE)
[2023-10-23] MEDS ORDERED: ACETAMINOPHEN 325 MG TAB ONE (00:10)
[2023-10-23] MEDS ORDERED: ACETAMINOPHEN 325 MG TAB PO ONE (00:15)
[2023-10-23] MEDS ORDERED: TAMSULOSIN HCL0.4 MG PO (00:26)
[2023-10-23] MEDS ORDERED: CEPHALEXIN500 MG PO (00:27)
[2023-10-23] MEDS ORDERED: MIDODRINE HCL2.5 MG PO (00:27)
[2023-10-23] MEDS ORDERED: ACETAMINOPHEN 650 MG SUPP PR ONE (00:45)
[2023-10-23] MEDS ORDERED: ondansetron HCL 4 MG/2 ML VIAL IV ONE (00:45)
[2023-10-23] MEDS ORDERED: dilTIAZem HCL 25 MG/5 ML VIAL IV ONE ×2 (01:00→01:30)
[2023-10-23] MEDS ORDERED: KETOROLAC TROMETHAMINE 15 MG/ML VIAL IV ONE (01:30)
[2023-10-23] MEDS ORDERED: SODIUM CHLORIDE 0.9% 1,000 ML IV SCH (01:30)
[2023-10-23] MEDS ORDERED: ACETAMINOPHEN 1,000 MG/100 ML VIAL IV ONE (02:00)
[2023-10-23 02:15] LABS: BILIRUBIN, URINE NEGATIVE (negative); BLOOD/HGB, URINE LARGE (Negative); KETONE, URINE NEGATIVE (Negative); LEUK ESTERASE, URINE MODERATE (negative); NITRITE, URINE NEGATIVE (negative)
[2023-10-23 02:22] LABS: CRYSTALS, URINE NONE SEEN (0-1+); EPITHELIAL CELLS, URINE SQUAMOUS 1+ /lpf (0-1+); WHITE BLOOD CELLS, URINE 41-50 /HPF (0-5)
[2023-10-23 02:23] LABS: BACTERIA, URINE 1+ /hpf (negative); CASTS, URINE GRANULAR 1+ \\lpf; COLLECTION TYPE, URINE CLEAN CATCH; REFLEX CULTURE, URINE Yes (No)
[2023-10-23 02:55] LABS: ABO A; RH POSITIVE
[2023-10-23] MEDS ORDERED: DILTIAZEM HCl/D5W 125 ML IV SCH (03:30)
[2023-10-23] MEDS ORDERED: CALCIUM GLUCONATE 1,000 MG/10 ML VIAL IV ONE (03:45)
[2023-10-23] MEDS ORDERED: VANCOMYCIN HCL/D5W 1 GM/270 ML PIGGYBACK KIT IV ONE (04:00)
[2023-10-23 05:32] VITALS: BP 98/70
[2023-10-23 09:14] LABS: ANTIBODY SCREEN POSITIVE
[2023-10-23 16:40] LABS: ANTIBODY IDENTIFICATION Anti-Ch
--- NOTE | 2023-10-23 21:06 | EKG ---
[facility] [address] [place] [address] Signed Sinus tachycardia with premature supraventricular complexes Otherwise normal ECG When compared with ECG of 05-OCT-2023 12:55, premature supraventricular complexes are now present Confirmed by Siena Lazo MD () on 10/23/2023 9:05:58 PM Electronically Signed By: SIENA LAZO MD 10/23/23 2106 PATIENT NAME: MICHELE RODRIGUEZ Electrocardiogram DATE OF : 36 PHYSICIAN: SIENA LAZO MD REPORT #: [id number] REPORT IS CONFIDENTIAL AND NOT TO BE RELEASED WITHOUT AUTHORIZATION
--- NOTE | 2023-10-23 21:08 | EKG ---
[facility] [address] [facility] [place], [place] [address] Signed Atrial fibrillation with rapid ventricular response Nonspecific T wave abnormality Abnormal ECG When compared with ECG of 22-OCT-2023 22:36, Atrial fibrillation has replaced Sinus rhythm Nonspecific T wave abnormality now evident in Lateral leads Confirmed by Siena Lazo MD () on 10/23/2023 9:07:49 PM Electronically Signed By: SIENA LAZO MD 10/23/23 2108 PATIENT NAME: MICHELE RODRIGUEZ Electrocardiogram DATE OF : 36 PHYSICIAN: SIENA LAZO MD REPORT #: [id number] REPORT IS CONFIDENTIAL AND NOT TO BE RELEASED WITHOUT AUTHORIZATION
== END 2023-10-23 05:32 | disposition short-term general hospital (02) ==
LOC: ED 22:22
PROVIDERS: Family Medicine
DX: A41.9 Sepsis, unspecified organism (principal); N39.0 Urinary tract infection, site not specified; R65.21 Severe sepsis with septic shock; N17.9 Acute kidney failure, unspecified; I13.0 Hypertensive heart and chronic kidney disease with heart failure and stage 1 through stage 4 chronic kidney disease, or unspecified chronic kidney disease; I50.30 Unspecified diastolic (congestive) heart failure; N18.9 Chronic kidney disease, unspecified; D63.8 Anemia in other chronic diseases classified elsewhere; T36.95XA Adverse effect of unspecified systemic antibiotic, initial encounter; K52.1 Toxic gastroenteritis and colitis; R80.3 Bence Jones proteinuria; C90.00 Multiple myeloma not having achieved remission; J45.909 Unspecified asthma, uncomplicated; I25.2 Old myocardial infarction; I25.10 Atherosclerotic heart disease of native coronary artery without angina pectoris; K21.9 Gastro-esophageal reflux disease without esophagitis; E66.9 Obesity, unspecified; Z68.36 Body mass index [BMI] 36.0-36.9, adult; Z88.8 Allergy status to other drugs, medicaments and biological substances; Z88.1 Allergy status to other antibiotic agents; Z88.5 Allergy status to narcotic agent; Z79.890 Hormone replacement therapy; Z79.899 Other long term (current) drug therapy
CPT/HCPCS: 36415; 36556; 51702; 51798; 71045; 74176; 80053; 81001; 82803; 83605; 83880; 85025; 85610; 85730; 86850; 86870; 86900; 86901; 86922; 87040; 87077; 87088; 87186; 87493; 87502; 93005; 93010; 99285-25; A9270; J0131; J0612; J0696; J1885; J2405; J3370; J7030; J7040; U0002